=== PATIENT | female | born 1930 | race Two or more races ===

== ENCOUNTER 2018-06-02 10:12 | Inpatient (IN) | payer MEDICARE, BC ==
[~2018-06-02] VITALS: Ht 157.5 cm; Wt 47.6 kg
[2018-06-02 11:24] LABS: HEMATOCRIT 37.6 % (37.0-47.0); HEMOGLOBIN 12.6 G/DL (12.0-16.0); MEAN CORPUSCULAR VOLUME 90 FL (80-99); PLATELET COUNT 420 K/UL (150-450); RED BLOOD COUNT 4.17 M/UL (4.20-5.40); WHITE BLOOD COUNT 9.7 K/UL (4.8-10.8)
[2018-06-02 11:28] LABS: APPEARANCE,URINE SLIGHTLY CLOUDY; BILIRUBIN, URINE NEGATIVE (NEGATIVE); COLOR,URINE PALE YELLOW; GLUCOSE, URINE (UA) NEGATIVE (NEGATIVE); KETONES,URINE NEGATIVE (NEGATIVE); LEUKOCYTE ESTERASE ,URINE 2+ (NEGATIVE); NITRITE,URINE NEGATIVE (NEGATIVE); PH,URINE 6 (4.5-8.0); PROTEIN,URINE NEGATIVE (NEGATIVE); UROBILINOGEN,URINE NORMAL MG/DL (0.0-1.0)
[2018-06-02 11:38] LABS: ANION GAP 11 mmol/L (5-15); BLOOD UREA NITROGEN 7 mg/dL (7-18); CALCIUM 9.8 MG/DL (8.5-10.1); CARBON DIOXIDE 27 MMOL/L (21-32); CHLORIDE 103 MMOL/L (98-107); CREATININE 0.7 MG/DL (0.55-1.30); POTASSIUM 3.1 MMOL/L (3.5-5.1); SODIUM 141 MMOL/L (136-145)
[2018-06-02 11:48] VITALS: BP 139/73
[2018-06-02 11:52] LABS: ALANINE AMINOTRANSFERASE 20 U/L (12-78); ALBUMIN 3.1 G/DL (3.4-5.0); ALBUMIN/GLOBULIN RATIO 0.5 (1.0-2.7); ALKALINE PHOSPHATASE 91 U/L (46-116); ASPARTATE AMINO TRANSFERASE 12 U/L (15-37); BILIRUBIN,TOTAL 0.4 MG/DL (0.2-1.0); CREATINE KINASE 64 U/L (26-308)
--- NOTE | 2018-06-02 11:57 | Diagnostic Imaging Report ---
Indication: Altered mental status Technique: spiral acquisitions obtained through the brain. Angled axial and coronal 5 x 5 mm slices were reconstructed. No IV contrast utilized. Radiation dose was minimized using automated exposure control Total dose length product 1304.74 mGycm. CTDIvol(s) 70.38 mGy Comparison: none FINDINGS: No acute hemorrhage or edema. No mass effect or midline shift. There is age-related enlargement of the ventricles and extra axial CSF spaces. There is periventricular deep white matter ischemic change. Normal yañez-white differentiation. Visualized orbits are unremarkable. Visualized sinuses are unremarkable. Intact calvarium. IMPRESSION: Chronic and age-related changes. Negative for acute intracranial bleed or mass effect The CT scanner at [facility] is accredited by the [employer] and the scans are performed using protocols designed to limit radiation exposure to as low as reasonably achievable to attain images of sufficient resolution adequate for diagnostic evaluation
--- NOTE | 2018-06-02 12:11 | Diagnostic Imaging Report ---
Indication: Shortness of breath Technique: One view of the chest Comparison: none Findings: Lungs and pleural spaces are clear. The aorta is tortuous and calcified. Normal heart size. There are left axillary surgical clips. Impression: No acute process. Findings as noted
--- NOTE | 2018-06-02 12:39 | Emergency Room Report ---
History of Present Illness General Chief Complaint: General Complaint Source: Family Member, EMS Present Illness HPI Patient present by paramedics for reports of continued weakness Over the past 2 days now the patient has been weaker than usual Family is unable to stand her to go to the restroom Patient has been behaving unusual as well talking to herself Family feels the patient has not been eating well Unknown regarding fever patient's speech also appears to be affected over the past 3 days No obvious reports of a fall family cannot provide any specific focal weakness History of present illness is limited given the patient's mental status Allergies: Coded Allergies: PENICILLINS (Verified Allergy, Unknown, 06/02/18) Patient History Limited by: medical condition Past Medical History: see triage record Pertinent Family History: none Last Menstrual Period: N/A Reviewed Nursing Documentation: PMH: Agreed; PSxH: Agreed Nursing Documentation-PMH Past Medical History: No History, Except For Hx Cardiac Problems: No - KIDNEY INFECTIONS Hx Cancer: Yes - BREAT, 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 History Of Psychiatric Problem: Yes - ALZHEIMERS, DEMENTIA Review of Systems All Other Systems: limited - Other than the ones mentioned in the history of present illness all others are reviewed however they do stay limited due to the patient's mental status Physical Exam Vital Signs Date Time Temp Pulse Resp B/P (MAP) Pulse Ox O2 Delivery O2 Flow Rate FiO2 06/02/18 10:15 99.2 88 16 160/92 99 Room Air 99.1 Sp02 EP Interpretation: reviewed, normal General Appearance: no apparent distress - However decreased response Head: normocephalic, atraumatic Eyes: bilateral eye PERRL, bilateral eye EOMI ENT: TMs + canals normal, uvula midline, dry mucus membranes Neck: supple, no meningismus, no bony tend Respiratory: no respiratory distress, no retraction, no accessory muscle use, crackles - Both lower lobes Cardiovascular #1: normal peripheral pulses, regular rate, rhythm, no edema, no gallop, no JVD, no murmur Gastrointestinal: normal bowel sounds, non tender, soft, no mass, no organomegaly, non-distended, no guarding, no hernia, no pulsatile mass, no rebound Genitourinary: no CVA tenderness Musculoskeletal: other - Patient does not follow commands has left upper extremity flexed, Neurologic: responsive - Minimally to physical stimuli Psychiatric: mood/affect normal Skin: no rash, warm/dry, palpation normal Lymphatic: normal inspection, no adenopathy Medical Decision Making Diagnostic Impression: Primary Impression: UTI (urinary tract infection) Additional Impression: Sepsis ER Course Patient is a fairly complex patient with multiple differential to consideration including but not limited to cardiac cardiopulmonary and vascular emergencies Patient's workup reveals bacteria in the urine Potassium was mildly low Given the patient's comorbidities age and examination she will require further inpatient care and evaluation Labs Test 06/04/18 22:56 06/05/18 07:10 06/06/18 04:03 06/06/18 11:00 Activated Partial Thromboplast Time 142 SEC (23-33) 92 SEC (23-33) 55 SEC (23-33) 126 SEC (23-33) Ferritin 116 NG/ML (8-388) White Blood Count 8.5 K/UL (4.8-10.8) 11.1 K/UL (4.8-10.8) Red Blood Count 3.49 M/UL (4.20-5.40) 3.58 M/UL (4.20-5.40) Hemoglobin 11.1 G/DL (12.0-16.0) 10.9 G/DL (12.0-16.0) Hematocrit 31.9 % (37.0-47.0) 32.4 % (37.0-47.0) Mean Corpuscular Volume 91 FL (80-99) 91 FL (80-99) Mean Corpuscular Hemoglobin 31.8 PG (27.0-31.0) 30.5 PG (27.0-31.0) Mean Corpuscular Hemoglobin Concent 34.8 G/DL (32.0-36.0) 33.7 G/DL (32.0-36.0) Red Cell Distribution Width 12.6 % (11.6-14.8) 12.4 % (11.6-14.8) Platelet Count 329 K/UL (150-450) 340 K/UL (150-450) Mean Platelet Volume 5.8 FL (6.5-10.1) 5.9 FL (6.5-10.1) Neutrophils (%) (Auto) 83.3 % (45.0-75.0) 74.5 % (45.0-75.0) Lymphocytes (%) (Auto) 10.5 % (20.0-45.0) 15.8 % (20.0-45.0) Monocytes (%) (Auto) 4.4 % (1.0-10.0) 8.3 % (1.0-10.0) Eosinophils (%) (Auto) 1.3 % (0.0-3.0) 0.7 % (0.0-3.0) Basophils (%) (Auto) 0.4 % (0.0-2.0) 0.7 % (0.0-2.0) Sodium Level 141 MMOL/L (136-145) Potassium Level 4.3 MMOL/L (3.5-5.1) Chloride Level 104 MMOL/L (98-107) Carbon Dioxide Level 28 MMOL/L (21-32) Anion Gap 9 mmol/L (5-15) Blood Urea Nitrogen 9 mg/dL (7-18) Creatinine 0.8 MG/DL (0.55-1.30) Estimat Glomerular Filtration Rate mL/min (>60) Glucose Level 91 MG/DL (74-106) Uric Acid 2.3 MG/DL (2.6-7.2) Calcium Level 9.3 MG/DL (8.5-10.1) Phosphorus Level 3.3 MG/DL (2.5-4.9) Magnesium Level 2.0 MG/DL (1.8-2.4) Total Bilirubin 0.3 MG/DL (0.2-1.0) Aspartate Amino Transf (AST/SGOT) 35 U/L (15-37) Alanine Aminotransferase (ALT/SGPT) 40 U/L (12-78) Alkaline Phosphatase 88 U/L (46-116) Total Protein 8.1 G/DL (6.4-8.2) Albumin 2.5 G/DL (3.4-5.0) Globulin 5.6 g/dL Albumin/Globulin Ratio 0.4 (1.0-2.7) Test 06/06/18 22:15 06/07/18 05:20 06/07/18 13:48 White Blood Count 11.9 K/UL (4.8-10.8) Red Blood Count 2.98 M/UL (4.20-5.40) Hemoglobin 9.7 G/DL (12.0-16.0) Hematocrit 26.8 % (37.0-47.0) Mean Corpuscular Volume 90 FL (80-99) Mean Corpuscular Hemoglobin 32.6 PG (27.0-31.0) Mean Corpuscular Hemoglobin Concent 36.3 G/DL (32.0-36.0) Red Cell Distribution Width 12.2 % (11.6-14.8) Platelet Count 330 K/UL (150-450) Mean Platelet Volume 5.2 FL (6.5-10.1) Neutrophils (%) (Auto) 84.2 % (45.0-75.0) Lymphocytes (%) (Auto) 9.5 % (20.0-45.0) Monocytes (%) (Auto) 5.3 % (1.0-10.0) Eosinophils (%) (Auto) 0.6 % (0.0-3.0) Basophils (%) (Auto) 0.5 % (0.0-2.0) Activated Partial Thromboplast Time 62 SEC (23-33) > 150 SEC (23-33) 50 SEC (23-33) Rhythm Strip Diag. Results EP Interpretation: yes Rate: 77 Rhythm: NSR, no PVC's, no ectopy Chest X-Ray Diagnostic Results Chest X-Ray Diagnostic Results : Chest X-Ray Ordered: Yes # of Views/Limited/Complete: 1 View Indication: Chest Pain EP Interpretation: Yes Interpretation: no consolidation, no effusion, no pneumothorax Impression: No acute disease Electronically Signed by: Charles Bowen DO CT/MRI/US Diagnostic Results CT/MRI/US Diagnostic Results : Impression CT head no acute disease Last Vital Signs Date Time Temp Pulse Resp B/P (MAP) Pulse Ox O2 Delivery O2 Flow Rate FiO2 06/02/18 11:48 99.1 83 16 139/73 94 Room Air 99.1 Status: improved Disposition: ADMITTED INPATIENT Condition: Serious Referrals: NON PHYSICIAN (PCP) Charles Bowen DO Jun 02, 2018 12:39
[2018-06-02] MEDS ORDERED: cefTRIAXone 1 GM in NS 55 ML IVPB ONE (12:45)
[2018-06-02 14:15] VITALS: BP 111/63
[2018-06-02] MEDS ORDERED: MIRTAZAPINE15 M3 ORAL (14:41)
[2018-06-02] MEDS ORDERED: MEMANTINE HCL E21 MG PO (14:41)
[2018-06-02] MEDS ORDERED: QUETIAPINE FUMA25 MG ORAL (14:41)
[2018-06-02 15:05] VITALS: BP 122/69
[2018-06-02] MEDS ORDERED: Acetaminophen 500mg (ES) tab ORAL PRN (16:00)
[2018-06-02] MEDS ORDERED: 1/2NS w/KCl 20mEq 1000ml 1,000 ML IV SCH (17:00)
--- NOTE | 2018-06-02 17:21 | Consultation ---
Consult Note Consult Note asked to eval by Dr Nunez Patient present by paramedics for reports of continued weakness Over the past 2 days now the patient has been weaker than usual Family is unable to stand her to go to the restroom Patient has been behaving unusual as well talking to herself Family feels the patient has not been eating well Unknown regarding fever patient's speech also appears to be affected over the past 3 days No obvious reports of a fall family cannot provide any specific focal weakness History of present illness is limited given the patient's mental status PENICILLINS (Verified Allergy, Unknown, 06/02/18) Hx Cancer: Yes - BREAT, 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
[2018-06-02] MEDS ORDERED: HydrALAZINE 25mg tab ORAL PRN (17:30)
[2018-06-02 20:00] VITALS: BP 120/65
[2018-06-02] MEDS: D5 1/2NS w/KCl 20mEq 1,000 ML IV SCH (20:17)
--- NOTE | 2018-06-02 23:24 | Consultation ---
History of Present Illness General Date patient seen: Jun 02, 2018 Chief Complaint: General Complaint Present Illness HPI 88 yo female with mmp and dementia was admitted for ams and weakness. Patient present by paramedics for reports of continued weakness. the pt was uncooperative and was a poor historian due to cognitive impairment Allergies: Coded Allergies: PENICILLINS (Verified Allergy, Unknown, 06/02/18) Medication History Scheduled Memantine HCl (Memantine HCl ER), 21 MG PO DAILY, (Reported) Mirtazapine* (Mirtazapine*), 15 MG ORAL BEDTIME, (Reported) Quetiapine Fumarate* (Seroquel*), 25 MG ORAL DAILY, (Reported) Patient History Limited by: medical condition History Provided By: Medical Record, PMD Healthcare decision maker Radha Bella Resuscitation status Full Code Advanced Directive on File Past Medical/Surgical History Past Medical/Surgical History: (1) Encephalopathy (2) UTI (urinary tract infection) (3) Hypokalemia (4) Breast cancer in female (5) Dementia (6) Malnutrition Review of Systems Psychiatric: Reports: anxiety, depressed feelings, emotional problems Physical Exam General Appearance: no apparent distress, alert, confused, agitated Last 24 Hour Vital Signs Date Time Temp Pulse Resp B/P (MAP) Pulse Ox O2 Delivery O2 Flow Rate FiO2 06/02/18 20:00 98.8 64 20 120/65 (83) 98 98.8 06/02/18 16:00 81 06/02/18 15:07 Room Air 06/02/18 15:05 98.1 18 122/69 (86) 99 98.1 06/02/18 14:35 99.1 77 17 111/63 93 Room Air 99.1 06/02/18 14:15 99.1 77 17 111/63 93 Room Air 99.1 06/02/18 11:48 99.1 83 16 139/73 94 Room Air 99.1 06/02/18 10:15 99.2 88 16 160/92 99 Room Air 99.1 Laboratory Tests Test 06/02/18 11:07 White Blood Count 9.7 K/UL (4.8-10.8) Red Blood Count 4.17 M/UL (4.20-5.40) L Hemoglobin 12.6 G/DL (12.0-16.0) Hematocrit 37.6 % (37.0-47.0) Mean Corpuscular Volume 90 FL (80-99) Mean Corpuscular Hemoglobin 30.1 PG (27.0-31.0) Mean Corpuscular Hemoglobin Concent 33.4 G/DL (32.0-36.0) Red Cell Distribution Width 12.0 % (11.6-14.8) Platelet Count 420 K/UL (150-450) Mean Platelet Volume 5.7 FL (6.5-10.1) L Neutrophils (%) (Auto) % (45.0-75.0) Lymphocytes (%) (Auto) % (20.0-45.0) Monocytes (%) (Auto) % (1.0-10.0) Eosinophils (%) (Auto) % (0.0-3.0) Basophils (%) (Auto) % (0.0-2.0) Differential Total Cells Counted 100 Neutrophils % (Manual) 87 % (45-75) H Lymphocytes % (Manual) 7 % (20-45) L Monocytes % (Manual) 6 % (1-10) Eosinophils % (Manual) 0 % (0-3) Basophils % (Manual) 0 % (0-2) Band Neutrophils 0 % (0-8) Platelet Estimate Increased H Platelet Morphology Normal Hypochromasia 1+ Prothrombin Time 10.2 SEC (9.30-11.50) Prothromb Time International Ratio 1.0 (0.9-1.1) Activated Partial Thromboplast Time 23 SEC (23-33) Urine Color Pale yellow Urine Appearance Slightly cloudy Urine pH 6 (4.5-8.0) Urine Specific [place] 1.005 (1.005-1.035) Urine Protein Negative (NEGATIVE) Urine Glucose (UA) Negative (NEGATIVE) Urine Ketones Negative (NEGATIVE) Urine Blood Negative (NEGATIVE) Urine Nitrite Negative (NEGATIVE) Urine Bilirubin Negative (NEGATIVE) Urine Urobilinogen Normal MG/DL (0.0-1.0) Urine Leukocyte Esterase 2+ (NEGATIVE) H Urine RBC 0-2 /HPF (0 - 2) Urine WBC 5-10 /HPF (0 - 2) H Urine Squamous Epithelial Cells Occasional /LPF Urine Bacteria Many /HPF (NONE) H Sodium Level 141 MMOL/L (136-145) Potassium Level 3.1 MMOL/L (3.5-5.1) L Chloride Level 103 MMOL/L (98-107) Carbon Dioxide Level 27 MMOL/L (21-32) Anion Gap 11 mmol/L (5-15) Blood Urea Nitrogen 7 mg/dL (7-18) Creatinine 0.7 MG/DL (0.55-1.30) Estimat Glomerular Filtration Rate mL/min (>60) Glucose Level 106 MG/DL (74-106) Lactic Acid Level 1.20 mmol/L (0.4-2.0) Calcium Level 9.8 MG/DL (8.5-10.1) Total Bilirubin 0.4 MG/DL (0.2-1.0) Aspartate Amino Transf (AST/SGOT) 12 U/L (15-37) L Alanine Aminotransferase (ALT/SGPT) 20 U/L (12-78) Alkaline Phosphatase 91 U/L (46-116) Total Creatine Kinase 64 U/L (26-308) Creatine Kinase MB 1.0 NG/ML (0.0-3.6) Creatine Kinase MB Relative Index 1.5 Troponin I 0.000 ng/mL (0.000-0.056) C-Reactive Protein, Quantitative 1.6 mg/dL (0.00-0.90) H Pro-B-Type Natriuretic Peptide 292 pg/mL (0-125) H Total Protein 9.2 G/DL (6.4-8.2) H Albumin 3.1 G/DL (3.4-5.0) L Globulin 6.1 g/dL Albumin/Globulin Ratio 0.5 (1.0-2.7) L Lipase 187 U/L (73-393) Height (Feet): 5 Height (Inches): 2.00 Weight (Pounds): 105 Medications Current Medications Medications (Trade) Dose Ordered Sig/Oren Route PRN Reason Start Time Stop Time Status Last Admin Dose Admin Acetaminophen (Tylenol) 500 mg Q4H PRN ORAL Mild Pain/Temp > 100.5 06/02/18 16:00 07/02/18 15:59 Ceftriaxone Sodium 1 gm/ Dextrose 55 ml @ 110 mls/hr DAILY IVPB 06/03/18 09:00 06/10/18 08:59 Dextrose/ Electrolytes 1,000 ml @ 50 mls/hr Q20H IV 06/02/18 17:30 07/02/18 17:29 06/02/18 20:17 Famotidine (Pepcid I.v.) 10 mg Q12HR IVP 06/02/18 21:00 07/02/18 20:59 06/02/18 20:32 Hydralazine HCl (Apresoline) 25 mg Q6H PRN ORAL for bp over 160 syst 06/02/18 17:30 07/02/18 17:29 Memantine (Namenda) 20 mg DAILY ORAL 06/03/18 09:00 07/03/18 08:59 Mirtazapine (Remeron) 15 mg BEDTIME ORAL 06/02/18 21:00 07/02/18 20:59 Quetiapine Fumarate (SEROquel) 25 mg DAILY ORAL 06/03/18 09:00 07/03/18 08:59 Assessment/Plan Assessment/Plan encephalopathy due to [facility] -cont home meds -provided charissa/Wolfgang Titus MD Jun 02, 2018 23:24
[2018-06-03] VITALS: BP 132/81
--- NOTE | 2018-06-03 02:45 | History and Physical Report ---
DATE OF ADMISSION: 06/02/2018 "NOTE: POOR AUDIO QUALITY" HISTORY OF PRESENT ILLNESS: The patient is admitted for basically unresponsiveness this morning. Family member called the paramedics. The patient has history of Alzheimer's, very poor historian, nonverbal, and cannot get any history from the patient. The patient also has history of DVT and breast cancer, is admitted for . The patient also has hypertension and also has been admitted for UTI as well as low potassium. PAST MEDICAL HISTORY: Significant for Alzheimer's, , and possible psychosis. History of DVT, history of breast cancer, and history of polyps. PAST SURGICAL HISTORY: Polypectomy, status post ruptured status post repair, status post right mastectomy with reconstructive surgery, and also hysterectomy. History of as well. MEDICATIONS: Namenda, mirtazapine, and Seroquel. ALLERGIES: To penicillin. FAMILY HISTORY: Noncontributory. SOCIAL HISTORY: History of smoking. No history of alcohol or illicit drugs. Lives at home with family. REVIEW OF SYSTEMS: Unable to obtain. PHYSICAL EXAMINATION: VITAL SIGNS: Temperature 99.9 degrees, pulse is 83, and blood pressure 129/73. HEENT: PERRLA. NECK: Supple. No lymphadenopathy. CHEST: Clear to auscultation. GASTROINTESTINAL: Soft, nontender, and nondistended. No organomegaly. EXTREMITIES: No edema. Reflexes in both sides. ABDOMEN: Soft and nontender. NEUROLOGIC: Does not follow neurologic exam. nonverbal. Generalized weakness. LABORATORY AND DIAGNOSTIC DATA: WBC of 9.7, hemoglobin 12.6, and platelets of 420,000. Sodium 141, potassium 3.1, chloride of 103, BUN of 7, creatinine of 0.7, and glucose of 106. ASSESSMENT AND PLAN: 1. Hypertension. 2. Low potassium. 3. UTI. 4. Weakness. 5. Encephalopathy, could be due to UTI. 6. Altered mental status, could be due to UTI. I have asked Dr. Virgen, Dr. Jeronimo Berry, and Dr. Wolfgang Rodrigez to see the patient for the treatment of dementia as well as the low potassium, hypertension, and UTI as well as psychosis. Charles Irizarry M.D. DR: BLAIR JOB#: [id number] CC:
[2018-06-03 04:00] VITALS: BP 125/72
[2018-06-03 06:24] LABS: BASOPHILS % (AUTO) 0.5 % (0.0-2.0); EOSINOPHILS % (AUTO) 0.6 % (0.0-3.0); LYMPHOCYTES % (AUTO) 14.2 % (20.0-45.0); MEAN CORPUSCULAR VOLUME 91 FL (80-99); MONOCYTES % (AUTO) 8.4 % (1.0-10.0); NEUTROPHILS % (AUTO) 76.3 % (45.0-75.0); PLATELET COUNT 315 K/UL (150-450); RED BLOOD COUNT 3.62 M/UL (4.20-5.40); RED CELL DISTRIBUTION WIDTH 12.3 % (11.6-14.8); WHITE BLOOD COUNT 8.6 K/UL (4.8-10.8)
[2018-06-03 07:47] LABS: ALANINE AMINOTRANSFERASE 17 U/L (12-78); ALBUMIN 2.5 G/DL (3.4-5.0); ALBUMIN/GLOBULIN RATIO 0.5 (1.0-2.7); ALKALINE PHOSPHATASE 78 U/L (46-116); ANION GAP 10 mmol/L (5-15); ASPARTATE AMINO TRANSFERASE 22 U/L (15-37); BILIRUBIN,TOTAL 0.5 MG/DL (0.2-1.0); BLOOD UREA NITROGEN 6 mg/dL (7-18); CALCIUM 9.2 MG/DL (8.5-10.1); CARBON DIOXIDE 25 MMOL/L (21-32); CHLORIDE 108 MMOL/L (98-107); CHOLESTEROL 196 MG/DL (< 200); CREATININE 0.8 MG/DL (0.55-1.30); FERRITIN 107 NG/ML (8-388); GAMMA GLUTAMYL TRANSPEPTIDASE 25 U/L (5-85); HDL CHOLESTEROL 45 MG/DL (40-60); PHOSPHORUS 2.6 MG/DL (2.5-4.9); POTASSIUM 3.2 MMOL/L (3.5-5.1); SODIUM 143 MMOL/L (136-145); TRIGLYCERIDES 142 MG/DL (30-150)
[2018-06-03 08:29] LABS: % IRON SATURATION 14 % (15-50); IRON 28 ug/dL (50-175); TOTAL IRON BINDING CAPACITY 200 ug/dL (250-450)
[2018-06-03] MEDS ORDERED: Memantine 10mg tab ORAL SCH (09:00)
[2018-06-03] MEDS: cefTRIAXone 1 GM in D5W 55 ML IVPB SCH (09:44)
--- NOTE | 2018-06-03 10:15 | Nephrology Progress Note ---
Assessment/Plan Problem List: (1) Encephalopathy (2) UTI (urinary tract infection) (3) Hypokalemia (4) Breast cancer in female Assessment: remote history (5) Dementia (6) Malnutrition Assessment UTI- HypoKalemia Dementia Remote h/o Breast Ca- Right Mastectomy- s/p chemo and radiation [facility] with K supplement B12 and Iron one dose per orders Subjective ROS Limited/Unobtainable: No Constitutional: Reports: malaise, weakness Objective Objective Last 24 Hour Vital Signs Date Time Temp Pulse Resp B/P (MAP) Pulse Ox O2 Delivery O2 Flow Rate FiO2 06/03/18 04:00 76 06/03/18 04:00 97.4 83 20 125/72 (89) 98 97.4 06/03/18 00:00 97.3 72 19 132/81 (98) 97 97.3 06/03/18 00:00 76 06/02/18 21:00 Room Air 06/02/18 20:00 98.8 64 20 120/65 (83) 98 98.8 06/02/18 20:00 75 06/02/18 16:00 81 06/02/18 15:07 Room Air 06/02/18 15:05 98.1 18 122/69 (86) 99 98.1 06/02/18 14:35 99.1 77 17 111/63 93 Room Air 99.1 06/02/18 14:15 99.1 77 17 111/63 93 Room Air 99.1 06/02/18 11:48 99.1 83 16 139/73 94 Room Air 99.1 06/02/18 10:15 99.2 88 16 160/92 99 Room Air 99.1 Intake and Output 06/02/18 06/03/18 19:00 07:00 Intake Total 55 ml Balance 55 ml Intake IV Total 55 ml # Voids 2 1 Laboratory Tests 06/02/18 11:07: White Blood Count 9.7, Red Blood Count 4.17L, Hemoglobin 12.6, Hematocrit 37.6, Mean Corpuscular Volume 90, Mean Corpuscular Hemoglobin 30.1, Mean Corpuscular Hemoglobin Concent 33.4, Red Cell Distribution Width 12.0, Platelet Count 420, Mean Platelet Volume 5.7L, Neutrophils (%) (Auto) , Lymphocytes (%) (Auto) , Monocytes (%) (Auto) , Eosinophils (%) (Auto) , Basophils (%) (Auto) , Differential Total Cells Counted 100, Neutrophils % (Manual) 87H, Lymphocytes % (Manual) 7L, Monocytes % (Manual) 6, Eosinophils % (Manual) 0, Basophils % ( Manual) 0, Band Neutrophils 0, Platelet Estimate IncreasedH, Platelet Morphology Normal, Hypochromasia 1+, Prothrombin Time 10.2, Prothromb Time International Ratio 1.0, Activated Partial Thromboplast Time 23, Urine Color Pale yellow, Urine Appearance Slightly cloudy, Urine pH 6, Urine Specific [place] 1.005, Urine Protein Negative, Urine Glucose (UA) Negative, Urine Ketones Negative, Urine Blood Negative, Urine Nitrite Negative, Urine Bilirubin Negative, Urine Urobilinogen Normal, Urine Leukocyte Esterase 2+H, Urine RBC 0-2 , Urine WBC 5-10H, Urine Squamous Epithelial Cells Occasional, Urine Bacteria ManyH, Sodium Level 141, Potassium Level 3.1L, Chloride Level 103, Carbon Dioxide Level 27, Anion Gap 11, Blood Urea Nitrogen 7, Creatinine 0.7, Estimat Glomerular Filtration Rate , Glucose Level 106, Lactic Acid Level 1.20, Calcium Level 9.8, Total Bilirubin 0.4, Aspartate Amino Transf (AST/SGOT) 12L, Alanine Aminotransferase (ALT/SGPT) 20, Alkaline Phosphatase 91, Total Creatine Kinase 64, Creatine Kinase MB 1.0, Creatine Kinase MB Relative Index 1.5, Troponin I 0.000, C-Reactive Protein, Quantitative 1.6H, Pro-B-Type Natriuretic Peptide 292H, Total Protein 9.2H, Albumin 3.1L, Globulin 6.1, Albumin/Globulin Ratio 0.5L, Lipase 187 06/03/18 04:55: White Blood Count 8.6, Red Blood Count 3.62L, Hemoglobin 11.0L, Hematocrit 33.0L , Mean Corpuscular Volume 91, Mean Corpuscular Hemoglobin 30.5, Mean Corpuscular Hemoglobin Concent 33.5, Red Cell Distribution Width 12.3, Platelet Count 315, Mean Platelet Volume 6.1L, Neutrophils (%) (Auto) 76.3H, Lymphocytes (%) (Auto) 14.2L, Monocytes (%) (Auto) 8.4, Eosinophils (%) (Auto) 0.6, Basophils (%) (Auto) 0.5, Sodium Level 143, Potassium Level 3.2L, Chloride Level 108H, Carbon Dioxide Level 25, Anion Gap 10, Blood Urea Nitrogen 6L, Creatinine 0.8, Estimat Glomerular Filtration Rate , Glucose Level 99, Calcium Level 9.2, Total Bilirubin 0.5, Aspartate Amino Transf (AST/SGOT) 22, Alanine Aminotransferase (ALT/SGPT) 17, Alkaline Phosphatase 78, Pro-B-Type Natriuretic Peptide 257H, Total Protein 7.9, Albumin 2.5L, Globulin 5.4, Albumin/Globulin Ratio 0.5L, Hemoglobin A1c 5.4, Uric Acid 2.9, Phosphorus Level 2.6, Magnesium Level 2.1, Iron Level 28L, Total Iron Binding Capacity 200L, Percent Iron Saturation 14L, Unsaturated Iron Binding 172, Ferritin 107, Gamma Glutamyl Transpeptidase 25, Triglycerides Level 142, Cholesterol Level 196, LDL Cholesterol 128H, HDL Cholesterol 45, Cholesterol/HDL Ratio 4.4, Vitamin B12 Level 380, Folate 8.8, Thyroid Stimulating Hormone (TSH) 1.016 Height (Feet): 5 Height (Inches): 2.00 Weight (Pounds): 105 General Appearance: no apparent distress Cardiovascular: regular rhythm Respiratory/Chest: lungs clear Abdomen: soft Ortega Virgen MD Jun 03, 2018 10:15
[2018-06-03 11:26] LABS: BASOPHILS % (AUTO) 0.7 % (0.0-2.0); EOSINOPHILS % (AUTO) 0.5 % (0.0-3.0); HEMATOCRIT 33.6 % (37.0-47.0); HEMOGLOBIN 11.2 G/DL (12.0-16.0); LYMPHOCYTES % (AUTO) 17.9 % (20.0-45.0); MEAN CORPUSCULAR VOLUME 91 FL (80-99); MONOCYTES % (AUTO) 7.2 % (1.0-10.0); NEUTROPHILS % (AUTO) 73.7 % (45.0-75.0); PLATELET COUNT 277 K/UL (150-450); RED BLOOD COUNT 3.69 M/UL (4.20-5.40); RED CELL DISTRIBUTION WIDTH 12.3 % (11.6-14.8); WHITE BLOOD COUNT 9.6 K/UL (4.8-10.8)
--- NOTE | 2018-06-03 12:23 | General Progress Note ---
Assessment/Plan Assessment/Plan encephalopathy due to [facility] -cont home meds -provided ro/st Subjective Date patient seen: Jun 03, 2018 Neurologic/Psychiatric: Reports: anxiety, depressed Allergies: Coded Allergies: PENICILLINS (Verified Allergy, Unknown, 06/02/18) Subjective the pt was min verbal. the pt was uncooperative Objective Last 24 Hour Vital Signs Date Time Temp Pulse Resp B/P (MAP) Pulse Ox O2 Delivery O2 Flow Rate FiO2 06/03/18 09:00 Room Air 06/03/18 07:43 77 06/03/18 04:00 76 06/03/18 04:00 97.4 83 20 125/72 (89) 98 97.4 06/03/18 00:00 97.3 72 19 132/81 (98) 97 97.3 06/03/18 00:00 76 06/02/18 21:00 Room Air 06/02/18 20:00 98.8 64 20 120/65 (83) 98 98.8 06/02/18 20:00 75 06/02/18 16:00 81 06/02/18 15:07 Room Air 06/02/18 15:05 98.1 18 122/69 (86) 99 98.1 06/02/18 14:35 99.1 77 17 111/63 93 Room Air 99.1 06/02/18 14:15 99.1 77 17 111/63 93 Room Air 99.1 Intake and Output 06/02/18 06/03/18 19:00 07:00 Intake Total 55 ml Balance 55 ml Intake IV Total 55 ml # Voids 2 1 Laboratory Tests 06/03/18 04:55: White Blood Count 8.6, Red Blood Count 3.62L, Hemoglobin 11.0L, Hematocrit 33.0L , Mean Corpuscular Volume 91, Mean Corpuscular Hemoglobin 30.5, Mean Corpuscular Hemoglobin Concent 33.5, Red Cell Distribution Width 12.3, Platelet Count 315, Mean Platelet Volume 6.1L, Neutrophils (%) (Auto) 76.3H, Lymphocytes (%) (Auto) 14.2L, Monocytes (%) (Auto) 8.4, Eosinophils (%) (Auto) 0.6, Basophils (%) (Auto) 0.5, Sodium Level 143, Potassium Level 3.2L, Chloride Level 108H, Carbon Dioxide Level 25, Anion Gap 10, Blood Urea Nitrogen 6L, Creatinine 0.8, Estimat Glomerular Filtration Rate , Glucose Level 99, Hemoglobin A1c 5.4, Uric Acid 2.9, Calcium Level 9.2, Phosphorus Level 2.6, Magnesium Level 2.1, Iron Level 28L, Total Iron Binding Capacity 200L, Percent Iron Saturation 14L, Unsaturated Iron Binding 172, Ferritin 107, Total Bilirubin 0.5, Gamma Glutamyl Transpeptidase 25, Aspartate Amino Transf (AST/ SGOT) 22, Alanine Aminotransferase (ALT/SGPT) 17, Alkaline Phosphatase 78, Pro-B -Type Natriuretic Peptide 257H, Total Protein 7.9, Albumin 2.5L, Globulin 5.4, Albumin/Globulin Ratio 0.5L, Triglycerides Level 142, Cholesterol Level 196, LDL Cholesterol 128H, HDL Cholesterol 45, Cholesterol/HDL Ratio 4.4, Vitamin B12 Level 380, Folate 8.8, Thyroid Stimulating Hormone (TSH) 1.016 06/03/18 11:00: White Blood Count 9.6, Red Blood Count 3.69L, Hemoglobin 11.2L, Hematocrit 33.6L , Mean Corpuscular Volume 91, Mean Corpuscular Hemoglobin 30.4, Mean Corpuscular Hemoglobin Concent 33.3, Red Cell Distribution Width 12.3, Platelet Count 277, Mean Platelet Volume 6.4L, Neutrophils (%) (Auto) 73.7, Lymphocytes ( %) (Auto) 17.9L, Monocytes (%) (Auto) 7.2, Eosinophils (%) (Auto) 0.5, Basophils (%) (Auto) 0.7, Activated Partial Thromboplast Time 26 Height (Feet): 5 Height (Inches): 2.00 Weight (Pounds): 105 General Appearance: no apparent distress, alert, confused Wolfgang Rodrigez MD Jun 03, 2018 12:23
[2018-06-03] MEDS ORDERED: Heparin 25,000u/D5W 500ml 500 ML IV SCH ×2 (12:30→20:45)
[2018-06-03] MEDS ORDERED: Heparin 5000 units/ml inj IV SCH ×3 (12:30→20:45)
[2018-06-03] MEDS ORDERED: Vitamin B12 1000mcg/ml Inj IM SCH (13:00)
[2018-06-03] MEDS: D5 1/2NS w/KCl 20mEq 1,000 ML IV SCH (14:14)
--- NOTE | 2018-06-03 15:53 | Cardiology Report ---
APPROVED REPORT EKG Measurement Heart [id number] Normal sinus rhythm Nonspecific ST abnormality Abnormal ECG
[2018-06-03 16:00] VITALS: BP 99/74
[2018-06-03 20:00] VITALS: BP 129/82
--- NOTE | 2018-06-03 20:52 | Consultation ---
Consult Note Consult Note PULMONARY CONSULTATION DATE: 06/03/18 REFERRING PHYSICIAN: Charles Nunez MD REASON FOR CONSULTATION: DVT HPI: 88 F ho advanced AD, BR CA S/P surg/chemo/XRT p/w AMS and UTI noted to have an acute non-occlusive RLE DVT. She has a prior ho DVT not on A/C. AFVSS, stable on RA, no further hx obtainable. PMH: Br CA S/P surgery/chemo/XRT, DVT, Alzheimer;s dementia Active Scripts Medications Dose Route/Sig Max Daily Dose Days Date Category Memantine HCl ER (Memantine HCl) 21 Mg Cap.spr.24 21 Mg PO DAILY 06/02/18 Reported Seroquel* (Quetiapine Fumarate) 25 Mg Tablet 25 Mg ORAL DAILY 06/02/18 Reported Mirtazapine* (Mirtazapine) 15 Mg Tablet 15 Mg ORAL BEDTIME 06/02/18 Reported SHx; No T/E/D use FHx: N/C ROS: unobtainable PE: Vital Sign - Last 24 Hours 06/02/18 06/03/18 06/03/18 06/03/18 21:00 00:00 00:00 04:00 Temp 97.3 97.4 97.3 97.4 Pulse 76 72 83 Resp 19 20 B/P (MAP) 132/81 (98) 125/72 (89) Pulse Ox 97 98 O2 Delivery Room Air 06/03/18 06/03/18 06/03/18 06/03/18 04:00 07:43 09:00 11:58 Pulse 76 77 74 O2 Delivery Room Air 06/03/18 06/03/18 15:47 16:00 Temp 97.5 97.5 Pulse 75 80 Resp 21 B/P (MAP) 99/74 (82) Pulse Ox 94 Intake and Output 06/02/18 06/02/18 06/03/18 15:00 23:00 07:00 Intake Total 55 ml Balance 55 ml Demented, minimall verbal NC/AT, OPC c MMM Supple s LAD or JVD CTA RRR S/NT/ND c NABS No C/C/E Laboratory Tests Test 06/03/18 04:55 06/03/18 11:00 06/03/18 19:30 White Blood Count 8.6 K/UL (4.8-10.8) 9.6 K/UL (4.8-10.8) Red Blood Count 3.62 M/UL (4.20-5.40) L 3.69 M/UL (4.20-5.40) L Hemoglobin 11.0 G/DL (12.0-16.0) L 11.2 G/DL (12.0-16.0) L Hematocrit 33.0 % (37.0-47.0) L 33.6 % (37.0-47.0) L Mean Corpuscular Volume 91 FL (80-99) 91 FL (80-99) Mean Corpuscular Hemoglobin 30.5 PG (27.0-31.0) 30.4 PG (27.0-31.0) Mean Corpuscular Hemoglobin Concent 33.5 G/DL (32.0-36.0) 33.3 G/DL (32.0-36.0) Red Cell Distribution Width 12.3 % (11.6-14.8) 12.3 % (11.6-14.8) Platelet Count 315 K/UL (150-450) 277 K/UL (150-450) Mean Platelet Volume 6.1 FL (6.5-10.1) L 6.4 FL (6.5-10.1) L Neutrophils (%) (Auto) 76.3 % (45.0-75.0) H 73.7 % (45.0-75.0) Lymphocytes (%) (Auto) 14.2 % (20.0-45.0) L 17.9 % (20.0-45.0) L Monocytes (%) (Auto) 8.4 % (1.0-10.0) 7.2 % (1.0-10.0) Eosinophils (%) (Auto) 0.6 % (0.0-3.0) 0.5 % (0.0-3.0) Basophils (%) (Auto) 0.5 % (0.0-2.0) 0.7 % (0.0-2.0) Sodium Level 143 MMOL/L (136-145) Potassium Level 3.2 MMOL/L (3.5-5.1) L Chloride Level 108 MMOL/L (98-107) H Carbon Dioxide Level 25 MMOL/L (21-32) Anion Gap 10 mmol/L (5-15) Blood Urea Nitrogen 6 mg/dL (7-18) L Creatinine 0.8 MG/DL (0.55-1.30) Estimat Glomerular Filtration Rate mL/min (>60) Glucose Level 99 MG/DL (74-106) Hemoglobin A1c 5.4 % (4.3-6.0) Uric Acid 2.9 MG/DL (2.6-7.2) Calcium Level 9.2 MG/DL (8.5-10.1) Phosphorus Level 2.6 MG/DL (2.5-4.9) Magnesium Level 2.1 MG/DL (1.8-2.4) Iron Level 28 ug/dL (50-175) L Total Iron Binding Capacity 200 ug/dL (250-450) L Percent Iron Saturation 14 % (15-50) L Unsaturated Iron Binding 172 ug/dL (112-346) Ferritin 107 NG/ML (8-388) Total Bilirubin 0.5 MG/DL (0.2-1.0) Gamma Glutamyl Transpeptidase 25 U/L (5-85) Aspartate Amino Transf (AST/SGOT) 22 U/L (15-37) Alanine Aminotransferase (ALT/SGPT) 17 U/L (12-78) Alkaline Phosphatase 78 U/L (46-116) Pro-B-Type Natriuretic Peptide 257 pg/mL (0-125) H Total Protein 7.9 G/DL (6.4-8.2) Albumin 2.5 G/DL (3.4-5.0) L Globulin 5.4 g/dL Albumin/Globulin Ratio 0.5 (1.0-2.7) L Triglycerides Level 142 MG/DL (30-150) Cholesterol Level 196 MG/DL (< 200) LDL Cholesterol 128 mg/dL (<100) H HDL Cholesterol 45 MG/DL (40-60) Cholesterol/HDL Ratio 4.4 (3.3-4.4) Vitamin B12 Level 380 PG/ML (193-986) Folate 8.8 NG/ML (8.6-58.9) Thyroid Stimulating Hormone (TSH) 1.016 uiU/mL (0.358-3.740) Activated Partial Thromboplast Time 26 SEC (23-33) 25 SEC (23-33) Assessment/Plan Acute RLE non-occlusive DVT H/O prior DVT not on A/C Fall risk Advanced alzheimer dementia AMS, likely toxic metabolic encephalopathy on top of underlying dementia UTI H/O Br CA S/P surgery/chemo/RT PLAN: This patient clearly poses a fall risk which is a concern for group home A/C. She had a prior DVT, it is unclear if that was provoked or not and whether she is off A/C 2/2 fall/bleed risk or that she completed the course of treatment. Nonetheless, I will start her on IV unfractionated heparin while she is in the hospital and we can decide on continued A/C over the course of the next day or two. I will speak with Dr. Nunez and attempt to obtain further records. One option would be to place an IVC filter. We will also get a KUB to make sure she doesn't already have an IVC filter. Alternatively, if she is able to tolerate A/C we can continue low dose A/C (i.e Apixaban 2.5 BID) cautiously with extreme fall precautions. Furthemore, we need to address her goals of care. Given her advanced dementia a more conservative approach may be the most appropriate. Lior Damico MD Jun 03, 2018 20:52
[2018-06-03] MEDS: Iron Sucrose 200 MG in NS 110 ML IV ONE (21:00)
--- NOTE | 2018-06-03 21:14 | General Progress Note ---
Assessment/Plan Problem List: (1) Encephalopathy ICD Codes: G93.40 - Encephalopathy, unspecified SNOMED: 69218748 (2) UTI (urinary tract infection) ICD Codes: N39.0 - Urinary tract infection, site not specified SNOMED: 40352184 (3) Breast cancer in female ICD Codes: C50.919 - Malignant neoplasm of unspecified site of unspecified female breast SNOMED: 686952769 (4) Hypokalemia ICD Codes: E87.6 - Hypokalemia SNOMED: 07721351 (5) Dementia ICD Codes: F03.90 - Unspecified dementia without behavioral disturbance SNOMED: 86850458 Status: stable Status Narrative obs ams uti encehpahlopathy lyte abnormality improving abx per id afebrile Subjective ROS Limited/Unobtainable: Yes Allergies: Coded Allergies: PENICILLINS (Verified Allergy, Unknown, 06/02/18) Objective Last 24 Hour Vital Signs Date Time Temp Pulse Resp B/P (MAP) Pulse Ox O2 Delivery O2 Flow Rate FiO2 06/03/18 16:00 97.5 80 21 99/74 (82) 94 97.5 06/03/18 15:47 75 06/03/18 11:58 74 06/03/18 09:00 Room Air 06/03/18 07:43 77 06/03/18 04:00 76 06/03/18 04:00 97.4 83 20 125/72 (89) 98 97.4 06/03/18 00:00 97.3 72 19 132/81 (98) 97 97.3 06/03/18 00:00 76 Intake and Output 06/02/18 06/03/18 19:00 07:00 Intake Total 55 ml Balance 55 ml IV Total 55 ml # Voids 2 1 Laboratory Tests 06/03/18 04:55: White Blood Count 8.6, Red Blood Count 3.62L, Hemoglobin 11.0L, Hematocrit 33.0L , Mean Corpuscular Volume 91, Mean Corpuscular Hemoglobin 30.5, Mean Corpuscular Hemoglobin Concent 33.5, Red Cell Distribution Width 12.3, Platelet Count 315, Mean Platelet Volume 6.1L, Neutrophils (%) (Auto) 76.3H, Lymphocytes (%) (Auto) 14.2L, Monocytes (%) (Auto) 8.4, Eosinophils (%) (Auto) 0.6, Basophils (%) (Auto) 0.5, Sodium Level 143, Potassium Level 3.2L, Chloride Level 108H, Carbon Dioxide Level 25, Anion Gap 10, Blood Urea Nitrogen 6L, Creatinine 0.8, Estimat Glomerular Filtration Rate , Glucose Level 99, Hemoglobin A1c 5.4, Uric Acid 2.9, Calcium Level 9.2, Phosphorus Level 2.6, Magnesium Level 2.1, Iron Level 28L, Total Iron Binding Capacity 200L, Percent Iron Saturation 14L, Unsaturated Iron Binding 172, Ferritin 107, Total Bilirubin 0.5, Gamma Glutamyl Transpeptidase 25, Aspartate Amino Transf (AST/ SGOT) 22, Alanine Aminotransferase (ALT/SGPT) 17, Alkaline Phosphatase 78, Pro-B -Type Natriuretic Peptide 257H, Total Protein 7.9, Albumin 2.5L, Globulin 5.4, Albumin/Globulin Ratio 0.5L, Triglycerides Level 142, Cholesterol Level 196, LDL Cholesterol 128H, HDL Cholesterol 45, Cholesterol/HDL Ratio 4.4, Vitamin B12 Level 380, Folate 8.8, Thyroid Stimulating Hormone (TSH) 1.016 06/03/18 11:00: White Blood Count 9.6, Red Blood Count 3.69L, Hemoglobin 11.2L, Hematocrit 33.6L , Mean Corpuscular Volume 91, Mean Corpuscular Hemoglobin 30.4, Mean Corpuscular Hemoglobin Concent 33.3, Red Cell Distribution Width 12.3, Platelet Count 277, Mean Platelet Volume 6.4L, Neutrophils (%) (Auto) 73.7, Lymphocytes ( %) (Auto) 17.9L, Monocytes (%) (Auto) 7.2, Eosinophils (%) (Auto) 0.5, Basophils (%) (Auto) 0.7, Activated Partial Thromboplast Time 26 06/03/18 19:30: Activated Partial Thromboplast Time 25 Height (Feet): 5 Height (Inches): 2.00 Weight (Pounds): 105 Neck: supple Cardiovascular: normal rate Respiratory/Chest: lungs clear Abdomen: soft Charles Irizarry MD Jun 03, 2018 21:14
--- NOTE | 2018-06-03 21:30 | Consultation ---
DATE OF CONSULTATION: 06/03/2018 INFECTIOUS DISEASE CONSULTATION CONSULTING PHYSICIAN: Jeronimo Berry M.D. PRIMARY ATTENDING PHYSICIAN: Charles Irizarry M.D. REASON FOR CONSULT: UTI. HISTORY OF PRESENT ILLNESS: The patient is an 88-year-old female, admitted yesterday from home. The patient is admitted because of weakness, talking to herself, not eating well. The patient also had pyuria. According to psychiatrist, the patient has history of psychiatric disorder and non compliant with her medication. PAST MEDICAL HISTORY: Significant for Alzheimer dementia; history of breast cancer, status post radiation, chemotherapy and left mastectomy in 1996. ALLERGIES: To penicillin. MEDICATIONS: Getting IV iron, heparin, Seroquel, Memantine, ceftriaxone, famotidine, Remeron, hydralazine and Tylenol. SOCIAL HISTORY: Lives at home. No history of alcohol, drug abuse or smoking. REVIEW OF SYSTEMS: Non-obtainable, the patient cannot communicate. PHYSICAL EXAMINATION: VITAL SIGNS: Temperature 97.4 degrees, pulse 77, and blood pressure 125/72. GENERAL APPEARANCE: Seems to be thin. HEAD AND NECK: [place] conjunctivae. HEART: S1 and S2. Regular. LUNGS: Clear. ABDOMEN: Soft, flat, and nontender. EXTREMITIES: She has no edema. LABORATORY AND DIAGNOSTIC DATA: WBC is 9.6, hemoglobin 11.2, hematocrit 33.6, and platelets 277. Sodium 143, potassium 3.2, chloride 108, bicarbonate 25, BUN 6 and creatinine 0.8. Albumin is 2.5. UA showed wbc's of 5 to 10, leukocyte esterase 2+, and many bacteria. Chest x-ray negative. CT scan of the head chronic age-related change. Venous duplex showed DVT in her right thigh area. IMPRESSION: Pyuria. The patient may have UTI, altered mental status, worsening of dementia, DVT of right lower extremity, psychiatric problem, failure to thrive, and poor p.o. intake. RECOMMENDATION: We will continue with ceftriaxone. We will follow up the cultures. At the end of my exam, I thank Dr. Irizarry, for involving me in the care of this patient. Jeronimo Berry M.D. DR: SHERRIE JOB#: [id number] CC: TATI
[2018-06-04] VITALS: BP 123/73
[2018-06-04 04:00] VITALS: BP 110/61
[2018-06-04] MEDS ORDERED: Heparin 25,000u/D5W 500ml 500 ML IV SCH ×3 (07:35→18:45)
[2018-06-04 08:00] VITALS: BP 133/63
--- NOTE | 2018-06-04 09:05 | Diagnostic Imaging Report ---
Indication: Abdominal pain Comparison: None Single view of the abdomen obtained Findings: Bowel gas pattern is nonspecific. No mass, ectopic calcifications, or abnormal gas collections are identified. The bones are unremarkable. There are surgical clips in the left hemipelvis. Impression: No acute findings
[2018-06-04] MEDS: D5 1/2NS w/KCl 20mEq 1,000 ML IV SCH ×2 (09:30→20:13)
--- NOTE | 2018-06-04 10:00 | Infectious Diseases Prog Note ---
Assessment/Plan Assessment/Plan A: UTI AMS Dementia, Alzheimer DVT of R leg P: Continue Rocephin Subjective ROS Limited/Unobtainable: Yes Allergies: Coded Allergies: PENICILLINS (Verified Allergy, Unknown, 06/02/18) Objective Vital Signs Last 24 Hour Vital Signs Date Time Temp Pulse Resp B/P (MAP) Pulse Ox O2 Delivery O2 Flow Rate FiO2 06/04/18 04:00 66 06/04/18 04:00 97.3 68 18 110/61 (77) 96 97.3 06/04/18 00:00 97.7 79 20 123/73 (90) 95 97.7 06/04/18 00:00 72 06/03/18 21:00 Room Air 06/03/18 20:00 98.2 65 18 129/82 (98) 97 98.2 06/03/18 20:00 81 06/03/18 16:00 97.5 80 21 99/74 (82) 94 97.5 06/03/18 15:47 75 06/03/18 11:58 74 Height (Feet): 5 Height (Inches): 2.00 Weight (Pounds): 105 General Appearance: no acute distress HEENT: mucous membranes moist Respiratory/Chest: lungs clear Cardiovascular: normal rate Abdomen: soft, non tender Extremities: no edema Neurologic/Psychiatric: other - poorly communicative Microbiology Date/Time Source Procedure Growth Status 06/02/18 11:20 Blood Blood Culture - Preliminary NO GROWTH AFTER 24 HOURS Resulted 06/02/18 11:07 Blood Blood Culture - Preliminary NO GROWTH AFTER 24 HOURS Resulted Laboratory Tests Test 06/03/18 11:00 06/03/18 19:30 06/04/18 05:22 White Blood Count 9.6 K/UL (4.8-10.8) Red Blood Count 3.69 M/UL (4.20-5.40) L Hemoglobin 11.2 G/DL (12.0-16.0) L Hematocrit 33.6 % (37.0-47.0) L Mean Corpuscular Volume 91 FL (80-99) Mean Corpuscular Hemoglobin 30.4 PG (27.0-31.0) Mean Corpuscular Hemoglobin Concent 33.3 G/DL (32.0-36.0) Red Cell Distribution Width 12.3 % (11.6-14.8) Platelet Count 277 K/UL (150-450) Mean Platelet Volume 6.4 FL (6.5-10.1) L Neutrophils (%) (Auto) 73.7 % (45.0-75.0) Lymphocytes (%) (Auto) 17.9 % (20.0-45.0) L Monocytes (%) (Auto) 7.2 % (1.0-10.0) Eosinophils (%) (Auto) 0.5 % (0.0-3.0) Basophils (%) (Auto) 0.7 % (0.0-2.0) Activated Partial Thromboplast Time 26 SEC (23-33) 25 SEC (23-33) 107 SEC (23-33) H Current Medications Medications (Trade) Dose Ordered Sig/Oren Route PRN Reason Start Time Stop Time Status Last Admin Dose Admin Acetaminophen (Tylenol) 500 mg Q4H PRN ORAL Mild Pain/Temp > 100.5 06/02/18 16:00 07/02/18 15:59 Ceftriaxone Sodium 1 gm/ Dextrose 55 ml @ 110 mls/hr DAILY IVPB 06/03/18 09:00 06/10/18 08:59 06/03/18 09:44 Dextrose/ Electrolytes 1,000 ml @ 50 mls/hr Q20H IV 06/02/18 17:30 07/02/18 17:29 06/03/18 14:14 Famotidine (Pepcid I.v.) 10 mg Q12HR IVP 06/02/18 21:00 07/02/18 20:59 06/03/18 22:59 Heparin Sodium/ Dextrose 500 ml @ 18.098 mls/ hr adjust per protocol IV 06/04/18 07:35 07/04/18 07:34 06/04/18 08:13 Hydralazine HCl (Apresoline) 25 mg Q6H PRN ORAL for bp over 160 syst 06/02/18 17:30 07/02/18 17:29 Mirtazapine (Remeron) 15 mg BEDTIME ORAL 06/02/18 21:00 07/02/18 20:59 Quetiapine Fumarate (SEROquel) 25 mg DAILY ORAL 06/03/18 09:00 07/03/18 08:59 06/03/18 09:18 Jeronimo eBrry MD Jun 04, 2018 10:00
[2018-06-04] MEDS: cefTRIAXone 1 GM in D5W 55 ML IVPB SCH (10:35)
--- NOTE | 2018-06-04 11:15 | General Progress Note ---
Assessment/Plan Status: stable, progressing Assessment/Plan encephalopathy due to [facility] -cont home meds -provided ro/st Subjective Date patient seen: Jun 04, 2018 Neurologic/Psychiatric: Reports: anxiety, depressed, emotional problems Allergies: Coded Allergies: PENICILLINS (Verified Allergy, Unknown, 06/02/18) Subjective the pt was min verbal. confused. Objective Last 24 Hour Vital Signs Date Time Temp Pulse Resp B/P (MAP) Pulse Ox O2 Delivery O2 Flow Rate FiO2 06/04/18 08:00 97.4 67 18 133/63 (86) 95 97.4 06/04/18 04:00 66 06/04/18 04:00 97.3 68 18 110/61 (77) 96 97.3 06/04/18 00:00 97.7 79 20 123/73 (90) 95 97.7 06/04/18 00:00 72 06/03/18 21:00 Room Air 06/03/18 20:00 98.2 65 18 129/82 (98) 97 98.2 06/03/18 20:00 81 06/03/18 16:00 97.5 80 21 99/74 (82) 94 97.5 06/03/18 15:47 75 06/03/18 11:58 74 Intake and Output 06/03/18 06/04/18 19:00 07:00 Intake Total 300 ml Balance 300 ml Intake Oral 300 ml # Voids 1 2 Laboratory Tests 06/03/18 19:30: Activated Partial Thromboplast Time 25 06/04/18 05:22: Activated Partial Thromboplast Time 107H Height (Feet): 5 Height (Inches): 2.00 Weight (Pounds): 105 General Appearance: no apparent distress, alert - waxing waning Neurologic: depressed affect Wolfgang Rodrigez MD Jun 04, 2018 11:15
[2018-06-04 12:00] VITALS: BP 105/63
--- NOTE | 2018-06-04 13:28 | Nephrology Progress Note ---
Assessment/Plan Problem List: (1) Encephalopathy (2) UTI (urinary tract infection) (3) Hypokalemia (4) Breast cancer in female Assessment: remote history (5) Dementia (6) Malnutrition Assessment UTI- HypoKalemia Dementia Remote h/o Breast Ca- Right Mastectomy- s/p chemo and radiation Plan Rocephin for UTI Hydrate with K supplement B12 and Iron one dose per orders Subjective ROS Limited/Unobtainable: No Constitutional: Reports: weakness Objective Objective Last 24 Hour Vital Signs Date Time Temp Pulse Resp B/P (MAP) Pulse Ox O2 Delivery O2 Flow Rate FiO2 06/04/18 08:00 97.4 67 18 133/63 (86) 95 97.4 06/04/18 04:00 66 06/04/18 04:00 97.3 68 18 110/61 (77) 96 97.3 06/04/18 00:00 97.7 79 20 123/73 (90) 95 97.7 06/04/18 00:00 72 06/03/18 21:00 Room Air 06/03/18 20:00 98.2 65 18 129/82 (98) 97 98.2 06/03/18 20:00 81 06/03/18 16:00 97.5 80 21 99/74 (82) 94 97.5 06/03/18 15:47 75 Intake and Output 06/03/18 06/04/18 19:00 07:00 Intake Total 300 ml Balance 300 ml Intake Oral 300 ml # Voids 1 2 Laboratory Tests 06/03/18 19:30: Activated Partial Thromboplast Time 25 06/04/18 05:22: Activated Partial Thromboplast Time 107H Height (Feet): 5 Height (Inches): 2.00 Weight (Pounds): 105 General Appearance: no apparent distress Cardiovascular: normal rate Respiratory/Chest: lungs clear Abdomen: soft Objective no change Ortega Virgen MD Jun 04, 2018 13:28
--- NOTE | 2018-06-04 15:57 | Diagnostic Imaging Report ---
APPROVED REPORT CPT Code: 53211 Present Symptoms Comments: R/O DVT RIGHT LEG: Venous imaging reveals non-occlusive acute thrombus in the common femoral to proximal superficial femoral veins. Remainder of the deep venous system within normal limits. No evidence of thrombus in the popliteal vein and calf veins. Greater saphenous vein also within normal limits. LEFT LEG: Venous imaging reveals a patent deep venous system. There is no evidence of thrombus within the femoral, popliteal or tibial segments. The greater saphenous vein is also within normal limits. Doppler indicates normal spontaneous flow within these segments. MARY ANN Regan was notified of abnormal results at 0950 hours.
[2018-06-04 16:00] VITALS: BP 101/61
[2018-06-04] MEDS ORDERED: Heparin 5000 units/ml inj IV SCH ×2 (16:25→16:32)
--- NOTE | 2018-06-04 16:37 | Pulmonology Progress Note ---
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 She had a prior DVT, it is unclear if that was provoked or not and whether she is off A/C 2/2 fall/bleed risk or that she completed the course of treatment. Nonetheless, I started her on IV unfractionated heparin while she is in the hospital and we can decide on continued A/C over the course of the next day or two. One option would be to place an IVC filter. A KUB was done and does not demonstrate an IVC filter. Alternatively, if she is able to tolerate A/C we can continue low dose A/C (i.e Apixaban 2.5 BID) cautiously with extreme fall precautions. Furthemore, we need to address her goals of care. Given her advanced dementia a more conservative approach may be the most appropriate. Message left for daughter/AMELIA Putnam Subjective Allergies: Coded Allergies: PENICILLINS (Verified Allergy, Unknown, 06/02/18) Subjective ANA, AFVSS, stable on RA Eri A/C, no IVCF on KUB No complaints, no SOB, no CP, no F/C Message left for kareem/AMELIA Putnam Objective Last 24 Hour Vital Signs Date Time Temp Pulse Resp B/P (MAP) Pulse Ox O2 Delivery O2 Flow Rate FiO2 06/04/18 16:00 98.0 84 18 101/61 (74) 95 98.0 06/04/18 12:00 66 06/04/18 12:00 97.2 72 18 105/63 (77) 95 97.2 06/04/18 09:00 Room Air 06/04/18 08:00 97.4 67 18 133/63 (86) 95 97.4 06/04/18 08:00 66 06/04/18 04:00 66 06/04/18 04:00 97.3 68 18 110/61 (77) 96 97.3 06/04/18 00:00 97.7 79 20 123/73 (90) 95 97.7 06/04/18 00:00 72 06/03/18 21:00 Room Air 06/03/18 20:00 98.2 65 18 129/82 (98) 97 98.2 06/03/18 20:00 81 Intake and Output 06/03/18 06/04/18 19:00 07:00 Intake Total 300 ml Balance 300 ml Intake Oral 300 ml # Voids 1 2 General Appearance: no acute distress, cachetic HEENT: normocephalic, atraumatic, anicteric, mucous membranes moist Respiratory/Chest: chest wall non-tender, lungs clear, normal breath sounds, no respiratory distress, no accessory muscle use Cardiovascular: normal peripheral pulses, normal rate, regular rhythm Abdomen: normal bowel sounds, soft, non tender, no organomegaly, non distended Extremities: no cyanosis, no clubbing, no edema Microbiology Date/Time Source Procedure Growth Status 06/02/18 11:20 Blood Blood Culture - Preliminary NO GROWTH AFTER 24 HOURS Resulted 06/02/18 11:07 Blood Blood Culture - Preliminary NO GROWTH AFTER 24 HOURS Resulted 06/02/18 11:07 Urine,Clean Catch Urine Culture - Preliminary Gram Negative Bacillus 1 Resulted Laboratory Tests 06/03/18 19:30: Activated Partial Thromboplast Time 25 06/04/18 05:22: Activated Partial Thromboplast Time 107H 06/04/18 15:35: Activated Partial Thromboplast Time 50H Current Medications Medications (Trade) Dose Ordered Sig/Oren Route PRN Reason Start Time Stop Time Status Last Admin Dose Admin Acetaminophen (Tylenol) 500 mg Q4H PRN ORAL Mild Pain/Temp > 100.5 06/02/18 16:00 07/02/18 15:59 Ceftriaxone Sodium 1 gm/ Dextrose 55 ml @ 110 mls/hr DAILY IVPB 06/03/18 09:00 06/10/18 08:59 06/04/18 10:35 Dextrose/ Electrolytes 1,000 ml @ 50 mls/hr Q20H IV 06/02/18 17:30 07/02/18 17:29 06/03/18 14:14 Famotidine (Pepcid I.v.) 10 mg Q12HR IVP 06/02/18 21:00 07/02/18 20:59 06/04/18 10:36 Heparin Sodium (Porcine) (Heparin 5000 units/ml) 3,500 units ONCE IV 06/04/18 16:32 06/04/18 17:32 Heparin Sodium/ Dextrose 500 ml @ 21.908 mls/ hr adjust per protocol IV 06/04/18 16:30 07/04/18 16:29 Hydralazine HCl (Apresoline) 25 mg Q6H PRN ORAL for bp over 160 syst 06/02/18 17:30 07/02/18 17:29 Mirtazapine (Remeron) 15 mg BEDTIME ORAL 06/02/18 21:00 07/02/18 20:59 Quetiapine Fumarate (SEROquel) 25 mg DAILY ORAL 06/03/18 09:00 07/03/18 08:59 06/04/18 10:35 Lior Rios MD Jun 04, 2018 16:37
[2018-06-04] MEDS ORDERED: HydrALAZINE 25mg tab ORAL PRN (19:00)
[2018-06-04] MEDS ORDERED: Acetaminophen 500mg (ES) tab ORAL PRN (19:00)
[2018-06-04 20:00] VITALS: BP 132/80
--- NOTE | 2018-06-04 20:50 | General Progress Note ---
Assessment/Plan Problem List: (1) Encephalopathy ICD Codes: G93.40 - Encephalopathy, unspecified SNOMED: 91169333 (2) UTI (urinary tract infection) ICD Codes: N39.0 - Urinary tract infection, site not specified SNOMED: 99389010 (3) Breast cancer in female ICD Codes: C50.919 - Malignant neoplasm of unspecified site of unspecified female breast SNOMED: 012255654 (4) Hypokalemia ICD Codes: E87.6 - Hypokalemia SNOMED: 80785037 (5) Dementia ICD Codes: F03.90 - Unspecified dementia without behavioral disturbance SNOMED: 25587745 Status: progressing Assessment/Plan ams uti is improving afebrile vitals stable reviewed chart and labs Subjective ROS Limited/Unobtainable: Yes Allergies: Coded Allergies: PENICILLINS (Verified Allergy, Unknown, 06/02/18) Objective Last 24 Hour Vital Signs Date Time Temp Pulse Resp B/P (MAP) Pulse Ox O2 Delivery O2 Flow Rate FiO2 06/04/18 20:00 98.0 104 18 132/80 (97) 95 98.0 06/04/18 16:00 98.0 84 18 101/61 (74) 95 98.0 06/04/18 16:00 85 06/04/18 12:00 66 06/04/18 12:00 97.2 72 18 105/63 (77) 95 97.2 06/04/18 09:00 Room Air 06/04/18 08:00 97.4 67 18 133/63 (86) 95 97.4 06/04/18 08:00 66 06/04/18 04:00 66 06/04/18 04:00 97.3 68 18 110/61 (77) 96 97.3 06/04/18 00:00 97.7 79 20 123/73 (90) 95 97.7 06/04/18 00:00 72 06/03/18 21:00 Room Air Intake and Output 06/03/18 06/04/18 19:00 07:00 Intake Total 300 ml Balance 300 ml Intake Oral 300 ml # Voids 1 2 Laboratory Tests 06/04/18 05:22: Activated Partial Thromboplast Time 107H 06/04/18 15:35: Activated Partial Thromboplast Time 50H Height (Feet): 5 Height (Inches): 2.00 Weight (Pounds): 105 Charles Irizarry MD Jun 04, 2018 20:50
[2018-06-05] VITALS: BP 103/60
[2018-06-05] MEDS: Heparin 25,000u/D5W 500ml 500 ML IV SCH (00:53)
[2018-06-05 04:00] VITALS: BP 115/64
[2018-06-05 08:00] VITALS: BP 103/65
[2018-06-05] MEDS ORDERED: cefTRIAXone 1 GM in D5W 55 ML IVPB SCH (09:00)
--- NOTE | 2018-06-05 10:18 | Nephrology Progress Note ---
Assessment/Plan Problem List: (1) Encephalopathy (2) UTI (urinary tract infection) (3) Hypokalemia (4) Breast cancer in female Assessment: remote history (5) Dementia (6) Malnutrition Assessment UTI- HypoKalemia Dementia Remote h/o Breast Ca- Right Mastectomy- s/p chemo and radiation Plan no labs today Rocephin for UTI Hydrate with K supplement B12 and Iron one dose per orders Subjective ROS Limited/Unobtainable: No Objective Objective Last 24 Hour Vital Signs Date Time Temp Pulse Resp B/P (MAP) Pulse Ox O2 Delivery O2 Flow Rate FiO2 06/05/18 08:00 97.8 64 19 103/65 (78) 94 97.8 06/05/18 04:00 97.3 68 20 115/64 (81) 100 97.3 06/05/18 00:00 97.4 92 20 103/60 (74) 93 97.4 06/04/18 21:00 Room Air 06/04/18 20:00 98.0 104 18 132/80 (97) 95 98.0 06/04/18 16:00 98.0 84 18 101/61 (74) 95 98.0 06/04/18 16:00 85 06/04/18 12:00 66 06/04/18 12:00 97.2 72 18 105/63 (77) 95 97.2 Intake and Output 06/04/18 06/05/18 19:00 07:00 Intake Total 530 ml 558.122 ml Output Total 600 ml Balance -70 ml 558.122 ml Intake Oral 480 ml IV Total 50 ml 558.122 ml Output Urine Total 600 ml Laboratory Tests 06/04/18 15:35: Activated Partial Thromboplast Time 50H 06/04/18 22:56: Activated Partial Thromboplast Time 142H 06/05/18 07:10: Activated Partial Thromboplast Time 92H, Ferritin 116 Height (Feet): 5 Height (Inches): 2.00 Weight (Pounds): 105 General Appearance: no apparent distress Cardiovascular: normal rate Respiratory/Chest: decreased breath sounds Abdomen: soft Objective no change Ortega Virgen MD Jun 05, 2018 10:18
[2018-06-05 12:00] VITALS: BP 132/49
--- NOTE | 2018-06-05 13:55 | Infectious Diseases Prog Note ---
Assessment/Plan Assessment/Plan A: UTI with E. coli AMS Dementia, Alzheimer DVT of R leg P: discontinue Rocephin Start on Cipro Subjective ROS Limited/Unobtainable: Yes Allergies: Coded Allergies: PENICILLINS (Verified Allergy, Unknown, 06/02/18) Objective Vital Signs Last 24 Hour Vital Signs Date Time Temp Pulse Resp B/P (MAP) Pulse Ox O2 Delivery O2 Flow Rate FiO2 06/05/18 12:00 98.0 78 20 132/49 (76) 94 98.0 06/05/18 08:45 Room Air 06/05/18 08:00 97.8 64 19 103/65 (78) 94 97.8 06/05/18 04:00 97.3 68 20 115/64 (81) 100 97.3 06/05/18 00:00 97.4 92 20 103/60 (74) 93 97.4 06/04/18 21:00 Room Air 06/04/18 20:00 98.0 104 18 132/80 (97) 95 98.0 06/04/18 16:00 98.0 84 18 101/61 (74) 95 98.0 06/04/18 16:00 85 Height (Feet): 5 Height (Inches): 2.00 Weight (Pounds): 105 General Appearance: no acute distress HEENT: mucous membranes moist Respiratory/Chest: lungs clear Cardiovascular: normal rate Abdomen: soft, non tender Extremities: no edema Neurologic/Psychiatric: other - awake, non communicative Laboratory Tests Test 06/04/18 15:35 06/04/18 22:56 06/05/18 07:10 Activated Partial Thromboplast Time 50 SEC (23-33) H 142 SEC (23-33) H 92 SEC (23-33) H Ferritin 116 NG/ML (8-388) Current Medications Medications (Trade) Dose Ordered Sig/Oren Route PRN Reason Start Time Stop Time Status Last Admin Dose Admin Acetaminophen (Tylenol) 500 mg Q4H PRN ORAL Mild Pain/Temp > 100.5 06/04/18 19:00 07/02/18 18:59 Ceftriaxone Sodium 1 gm/ Dextrose 55 ml @ 110 mls/hr DAILY IVPB 06/05/18 09:00 06/10/18 08:59 06/05/18 09:03 Dextrose/ Electrolytes 1,000 ml @ 50 mls/hr Q20H IV 06/04/18 18:45 07/02/18 17:29 06/04/18 20:13 Heparin Sodium/ Dextrose 500 ml @ 19.051 mls/ hr adjust per protocol IV 06/05/18 00:45 07/05/18 00:44 06/05/18 00:53 Hydralazine HCl (Apresoline) 25 mg Q6H PRN ORAL for bp over 160 syst 06/04/18 19:00 07/02/18 18:59 Mirtazapine (Remeron) 15 mg BEDTIME ORAL 06/04/18 21:00 07/02/18 20:59 06/04/18 21:39 Pantoprazole (Protonix) 40 mg DAILY ORAL 06/06/18 09:00 07/06/18 08:59 Quetiapine Fumarate (SEROquel) 25 mg DAILY ORAL 06/05/18 09:00 07/03/18 08:59 06/05/18 09:02 Jeronimo Berry MD Jun 05, 2018 13:55
--- NOTE | 2018-06-05 14:15 | General Progress Note ---
Assessment/Plan Assessment/Plan encephalopathy due to [facility] -cont home meds -provided ro/st seroquel prn Subjective Neurologic/Psychiatric: Reports: anxiety, depressed, emotional problems Allergies: Coded Allergies: PENICILLINS (Verified Allergy, Unknown, 06/02/18) Subjective the pt was min verbal. confused. Objective Last 24 Hour Vital Signs Date Time Temp Pulse Resp B/P (MAP) Pulse Ox O2 Delivery O2 Flow Rate FiO2 06/05/18 12:00 98.0 78 20 132/49 (76) 94 98.0 06/05/18 08:45 Room Air 06/05/18 08:00 97.8 64 19 103/65 (78) 94 97.8 06/05/18 04:00 97.3 68 20 115/64 (81) 100 97.3 06/05/18 00:00 97.4 92 20 103/60 (74) 93 97.4 06/04/18 21:00 Room Air 06/04/18 20:00 98.0 104 18 132/80 (97) 95 98.0 06/04/18 16:00 98.0 84 18 101/61 (74) 95 98.0 06/04/18 16:00 85 Intake and Output 06/04/18 06/05/18 19:00 07:00 Intake Total 530 ml 558.122 ml Output Total 600 ml Balance -70 ml 558.122 ml Intake Oral 480 ml IV Total 50 ml 558.122 ml Output Urine Total 600 ml Laboratory Tests 06/04/18 15:35: Activated Partial Thromboplast Time 50H 06/04/18 22:56: Activated Partial Thromboplast Time 142H 06/05/18 07:10: Activated Partial Thromboplast Time 92H, Ferritin 116 Height (Feet): 5 Height (Inches): 2.00 Weight (Pounds): 105 General Appearance: no apparent distress, confused, agitated Wolfgang Rodrigez MD Jun 05, 2018 14:15
--- NOTE | 2018-06-05 14:30 | Pulmonology Progress Note ---
Assessment/Plan Assessment/Plan ASSESSMENT: Acute RLE non-occlusive DVT H/O prior DVT not on A/C Fall risk Advanced alzheimer dementia AMS, likely toxic metabolic encephalopathy on top of underlying dementia UTI H/O Br CA S/P surgery/chemo/RT PLAN: This patient clearly poses a fall risk which is a concern for manager terminal A/C. She had a prior DVT, it is unclear if that was provoked or not and whether she is off A/C 2/2 fall/bleed risk or that she completed the course of treatment. I discussed the case with her daughter, Indy, and Dr Foley (her PMD) @ [facility]'s coverage. Given her advanced age, dementia and fall risk we will continue A/C for now but will likely place an IVC filter prior to D/C and then D/C home off A /C. Given her advanced dementia a more conservative approach may be the most appropriate. Message left for kareem/AMELIA Putnam Subjective Allergies: Coded Allergies: PENICILLINS (Verified Allergy, Unknown, 06/02/18) Subjective ANA, AFVSS, stable on RA Eri A/C No complaints, no SOB, no CP, no F/C D/W kareem/AMELIA Putnam and PMD @ [facility] (Dr. Foley's) coverage Objective Last 24 Hour Vital Signs Date Time Temp Pulse Resp B/P (MAP) Pulse Ox O2 Delivery O2 Flow Rate FiO2 06/05/18 12:00 98.0 78 20 132/49 (76) 94 98.0 06/05/18 08:45 Room Air 06/05/18 08:00 97.8 64 19 103/65 (78) 94 97.8 06/05/18 04:00 97.3 68 20 115/64 (81) 100 97.3 06/05/18 00:00 97.4 92 20 103/60 (74) 93 97.4 06/04/18 21:00 Room Air 06/04/18 20:00 98.0 104 18 132/80 (97) 95 98.0 06/04/18 16:00 98.0 84 18 101/61 (74) 95 98.0 06/04/18 16:00 85 Intake and Output 06/04/18 06/05/18 19:00 07:00 Intake Total 530 ml 558.122 ml Output Total 600 ml Balance -70 ml 558.122 ml Intake Oral 480 ml IV Total 50 ml 558.122 ml Output Urine Total 600 ml General Appearance: no acute distress, cachetic HEENT: normocephalic, atraumatic, anicteric, mucous membranes moist Respiratory/Chest: chest wall non-tender, lungs clear, normal breath sounds, no respiratory distress, no accessory muscle use Cardiovascular: normal peripheral pulses, normal rate, regular rhythm Abdomen: normal bowel sounds, soft, non tender, no organomegaly, non distended , no mass Extremities: no cyanosis, no clubbing, no edema Laboratory Tests 06/04/18 15:35: Activated Partial Thromboplast Time 50H 06/04/18 22:56: Activated Partial Thromboplast Time 142H 06/05/18 07:10: Activated Partial Thromboplast Time 92H, Ferritin 116 Current Medications Medications (Trade) Dose Ordered Sig/Oren Route PRN Reason Start Time Stop Time Status Last Admin Dose Admin Acetaminophen (Tylenol) 500 mg Q4H PRN ORAL Mild Pain/Temp > 100.5 06/04/18 19:00 07/02/18 18:59 Ciprofloxacin (Cipro 500mg tab) 500 mg EVERY 12 HOURS ORAL 06/05/18 21:00 06/12/18 20:59 Dextrose/ Electrolytes 1,000 ml @ 50 mls/hr Q20H IV 06/04/18 18:45 07/02/18 17:29 06/04/18 20:13 Heparin Sodium/ Dextrose 500 ml @ 19.051 mls/ hr adjust per protocol IV 06/05/18 00:45 07/05/18 00:44 06/05/18 00:53 Hydralazine HCl (Apresoline) 25 mg Q6H PRN ORAL for bp over 160 syst 06/04/18 19:00 07/02/18 18:59 Mirtazapine (Remeron) 15 mg BEDTIME ORAL 06/04/18 21:00 07/02/18 20:59 06/04/18 21:39 Pantoprazole (Protonix) 40 mg DAILY ORAL 06/06/18 09:00 07/06/18 08:59 Quetiapine Fumarate (SEROquel) 25 mg DAILY ORAL 06/05/18 09:00 07/03/18 08:59 06/05/18 09:02 Quetiapine Fumarate (SEROquel) 25 mg EVERY 6 HOURS PRN ORAL For Anxiety 06/05/18 14:15 07/05/18 14:14 Lior Rios MD Jun 05, 2018 14:30
[2018-06-05] MEDS: D5 1/2NS w/KCl 20mEq 1,000 ML IV SCH (14:44)
--- NOTE | 2018-06-05 14:53 | General Progress Note ---
Assessment/Plan Problem List: (1) Encephalopathy ICD Codes: G93.40 - Encephalopathy, unspecified SNOMED: 61295736 (2) UTI (urinary tract infection) ICD Codes: N39.0 - Urinary tract infection, site not specified SNOMED: 76661874 (3) Breast cancer in female ICD Codes: C50.919 - Malignant neoplasm of unspecified site of unspecified female breast SNOMED: 458182371 (4) Hypokalemia ICD Codes: E87.6 - Hypokalemia SNOMED: 08971283 (5) Dementia ICD Codes: F03.90 - Unspecified dementia without behavioral disturbance SNOMED: 33127437 Status: progressing Assessment/Plan ams uti is improving low k blood clot.treatment per dr mark dhaliwal for bleeding Subjective ROS Limited/Unobtainable: Yes Allergies: Coded Allergies: PENICILLINS (Verified Allergy, Unknown, 06/02/18) Objective Last 24 Hour Vital Signs Date Time Temp Pulse Resp B/P (MAP) Pulse Ox O2 Delivery O2 Flow Rate FiO2 06/05/18 12:00 98.0 78 20 132/49 (76) 94 98.0 06/05/18 08:45 Room Air 06/05/18 08:00 97.8 64 19 103/65 (78) 94 97.8 06/05/18 04:00 97.3 68 20 115/64 (81) 100 97.3 06/05/18 00:00 97.4 92 20 103/60 (74) 93 97.4 06/04/18 21:00 Room Air 06/04/18 20:00 98.0 104 18 132/80 (97) 95 98.0 06/04/18 16:00 98.0 84 18 101/61 (74) 95 98.0 06/04/18 16:00 85 Intake and Output 06/04/18 06/05/18 19:00 07:00 Intake Total 530 ml 558.122 ml Output Total 600 ml Balance -70 ml 558.122 ml Intake Oral 480 ml IV Total 50 ml 558.122 ml Output Urine Total 600 ml Laboratory Tests 06/04/18 15:35: Activated Partial Thromboplast Time 50H 06/04/18 22:56: Activated Partial Thromboplast Time 142H 06/05/18 07:10: Activated Partial Thromboplast Time 92H, Ferritin 116 Height (Feet): 5 Height (Inches): 2.00 Weight (Pounds): 105 Cardiovascular: normal rate Respiratory/Chest: lungs clear Abdomen: soft Charles Irizarry MD Jun 05, 2018 14:53
[2018-06-05 16:00] VITALS: BP 105/50
[2018-06-05] MEDS ORDERED: Pneumococcal Vaccine 25mcg/0.5ml IM ONE (17:00)
[2018-06-05 20:00] VITALS: BP 92/55
[2018-06-05] MEDS: Ciprofloxacin 500mg tab ORAL SCH (20:59)
--- NOTE | 2018-06-05 21:15 | Consultation ---
DATE OF CONSULTATION: 06/04/2018 HEMATOLOGY/ONCOLOGY CONSULTATION It is a late entry. CONSULTING PHYSICIAN: Wang Mares M.D. REQUESTING PHYSICIAN: Charles Irizarry M.D. REASON FOR CONSULTATION: Evaluation of ongoing anemia and evaluation of breast cancer. IDENTIFICATION DATA: Dear Dr. Irizarry, The patient is a pleasant 88-year-old female with history of breast cancer, status post chemotherapy and radiation with left mastectomy in 1996, at this time presents to the hospital with muscle weakness has been having pyuria, has been seen by psychiatrist, has been noncompliant with medications, seen by Nephrology Service for Infectious Disease. Further evaluate if needed. She is on antibiotics. PAST MEDICAL HISTORY: Alzheimer disease, breast cancer, status post radiation, chemo, and left mastectomy. ALLERGIES: Penicillin. MEDICATIONS: Heparin, Seroquel, Memantine, ceftriaxone, , hydralazine, Remeron, and Tylenol. SOCIAL HISTORY: Lives at home. No alcohol, tobacco, or illicit drug use. REVIEW OF SYSTEMS: Difficult to obtain. Cannot communicate. PHYSICAL EXAMINATION: VITAL SIGNS: Reviewed. GENERAL: No acute distress. PULMONARY: Decreased breath sounds. CARDIOVASCULAR: Regular rate. No S3 or S4. ABDOMEN: Soft, nontender, and nondistended. EXTREMITIES: A 1+ edema. LABORATORY DATA: WBC 9.6, hemoglobin 11.2, hematocrit 34, and platelet count 377,000. INR is 1. PTT of 92. IMAGING: Duplex of the lower extremity reviewed shows nonocclusive acute thrombus in the femoral to proximal superficial area. ASSESSMENT AND RECOMMENDATIONS: 1. Left leg femoral to proximal deep venous thrombosis. At this time, the patient is on anticoagulation with heparin drip. Currently, hemoglobin improved. Hemoglobin currently at 11.2. No significant evidence of bleed, however, may consider to place the patient on low dose apixaban and potentially withhold IVC filter though that is an option. I have reviewed Pulmonary note. 2. History of breast cancer, status post chemotherapy and radiation and surgery. 3. Altered mental status, likely encephalopathy. 4. Dementia. 5. Urinary tract infection, status post antibiotics. 6. Dementia. Seen by Neurology. 7. Fall risk. Further evaluation as needed with Neurological Service. 8. Depression. Seen by Psychiatry. Wang Senthil Mares DR: DIAZ JOB#: [id number] CC:
[2018-06-06] VITALS (8 sets, daily range): BP systolic 102–135; BP diastolic 54–70
[2018-06-06] MEDS: Heparin 25,000u/D5W 500ml 500 ML IV SCH (03:24)
[2018-06-06 04:18] LABS: BASOPHILS % (AUTO) 0.4 % (0.0-2.0); EOSINOPHILS % (AUTO) 1.3 % (0.0-3.0); HEMATOCRIT 31.9 % (37.0-47.0); HEMOGLOBIN 11.1 G/DL (12.0-16.0); LYMPHOCYTES % (AUTO) 10.5 % (20.0-45.0); MEAN CORPUSCULAR VOLUME 91 FL (80-99); MONOCYTES % (AUTO) 4.4 % (1.0-10.0); NEUTROPHILS % (AUTO) 83.3 % (45.0-75.0); PLATELET COUNT 329 K/UL (150-450); RED BLOOD COUNT 3.49 M/UL (4.20-5.40); RED CELL DISTRIBUTION WIDTH 12.6 % (11.6-14.8); WHITE BLOOD COUNT 8.5 K/UL (4.8-10.8)
[2018-06-06 04:29] LABS: ALANINE AMINOTRANSFERASE 40 U/L (12-78); ALBUMIN 2.5 G/DL (3.4-5.0); ALBUMIN/GLOBULIN RATIO 0.4 (1.0-2.7); ALKALINE PHOSPHATASE 88 U/L (46-116); ANION GAP 9 mmol/L (5-15); ASPARTATE AMINO TRANSFERASE 35 U/L (15-37); BILIRUBIN,TOTAL 0.3 MG/DL (0.2-1.0); BLOOD UREA NITROGEN 9 mg/dL (7-18); CALCIUM 9.3 MG/DL (8.5-10.1); CARBON DIOXIDE 28 MMOL/L (21-32); CHLORIDE 104 MMOL/L (98-107); CREATININE 0.8 MG/DL (0.55-1.30); PHOSPHORUS 3.3 MG/DL (2.5-4.9); POTASSIUM 4.3 MMOL/L (3.5-5.1); SODIUM 141 MMOL/L (136-145)
[2018-06-06] MEDS ORDERED: Heparin 25,000u/D5W 500ml 500 ML IV SCH ×4 (04:45→23:15)
[2018-06-06] MEDS ORDERED: Heparin 5000 units/ml inj IV SCH (04:45)
[2018-06-06] MEDS: Ciprofloxacin 500mg tab ORAL SCH ×2 (09:51→22:38)
[2018-06-06] MEDS: D5 1/2NS w/KCl 20mEq 1,000 ML IV SCH (10:45)
--- NOTE | 2018-06-06 10:51 | Nephrology Progress Note ---
Assessment/Plan Problem List: (1) Encephalopathy (2) UTI (urinary tract infection) (3) Hypokalemia (4) Breast cancer in female Assessment: remote history (5) Dementia (6) Malnutrition Assessment UTI- HypoKalemia Dementia Remote h/o Breast Ca- Right Mastectomy- s/p chemo and radiation Acute RLE non-occlusive DVT H/O prior DVT not on A/C Fall risk Plan on heparin pending IVC filter? Cipro for uti DC IV fluids B12 and Iron one dose per orders Subjective ROS Limited/Unobtainable: No Constitutional: Reports: malaise Objective Objective Last 24 Hour Vital Signs Date Time Temp Pulse Resp B/P (MAP) Pulse Ox O2 Delivery O2 Flow Rate FiO2 06/06/18 10:06 Room Air 06/06/18 08:00 98.9 86 18 114/65 (81) 98.9 06/06/18 04:00 98.0 77 18 111/59 (76) 95 98.0 06/06/18 00:00 98.5 73 18 135/60 (85) 96 98.5 06/05/18 21:00 Room Air 06/05/18 20:00 98.1 78 16 92/55 (67) 96 98.1 06/05/18 16:00 97.6 77 19 105/50 (68) 95 97.6 06/05/18 12:00 98.0 78 20 132/49 (76) 94 98.0 Intake and Output 06/05/18 06/06/18 19:00 07:00 Intake Total 918.612 ml 613.739 ml Output Total 1200 ml 1100 ml Balance -281.388 ml -486.261 ml Intake Oral 480 ml IV Total 438.612 ml 613.739 ml Output Urine Total 1200 ml 1100 ml Laboratory Tests 06/06/18 04:03: White Blood Count 8.5, Red Blood Count 3.49L, Hemoglobin 11.1L, Hematocrit 31.9L , Mean Corpuscular Volume 91, Mean Corpuscular Hemoglobin 31.8H, Mean Corpuscular Hemoglobin Concent 34.8, Red Cell Distribution Width 12.6, Platelet Count 329, Mean Platelet Volume 5.8L, Neutrophils (%) (Auto) 83.3H, Lymphocytes (%) (Auto) 10.5L, Monocytes (%) (Auto) 4.4, Eosinophils (%) (Auto) 1.3, Basophils (%) (Auto) 0.4, Activated Partial Thromboplast Time 55H, Sodium Level 141, Potassium Level 4.3, Chloride Level 104, Carbon Dioxide Level 28, Anion Gap 9, Blood Urea Nitrogen 9, Creatinine 0.8, Estimat Glomerular Filtration Rate , Glucose Level 91, Uric Acid 2.3L, Calcium Level 9.3, Phosphorus Level 3.3 , Magnesium Level 2.0, Total Bilirubin 0.3, Aspartate Amino Transf (AST/SGOT) 35 , Alanine Aminotransferase (ALT/SGPT) 40, Alkaline Phosphatase 88, Total Protein 8.1, Albumin 2.5L, Globulin 5.6, Albumin/Globulin Ratio 0.4L Height (Feet): 5 Height (Inches): 2.00 Weight (Pounds): 105 General Appearance: no apparent distress Cardiovascular: normal rate Respiratory/Chest: lungs clear Abdomen: soft Objective no change Ortega Virgen MD Jun 06, 2018 10:51
[2018-06-06 11:23] LABS: BASOPHILS % (AUTO) 0.7 % (0.0-2.0); EOSINOPHILS % (AUTO) 0.7 % (0.0-3.0); HEMATOCRIT 32.4 % (37.0-47.0); HEMOGLOBIN 10.9 G/DL (12.0-16.0); LYMPHOCYTES % (AUTO) 15.8 % (20.0-45.0); MEAN CORPUSCULAR VOLUME 91 FL (80-99); MONOCYTES % (AUTO) 8.3 % (1.0-10.0); NEUTROPHILS % (AUTO) 74.5 % (45.0-75.0); PLATELET COUNT 340 K/UL (150-450); RED BLOOD COUNT 3.58 M/UL (4.20-5.40); RED CELL DISTRIBUTION WIDTH 12.4 % (11.6-14.8); WHITE BLOOD COUNT 11.1 K/UL (4.8-10.8)
--- NOTE | 2018-06-06 11:31 | General Progress Note ---
Assessment/Plan Status: stable Assessment/Plan 1. Left leg femoral to proximal deep venous thrombosis. At this time, the patient is on anticoagulation with heparin drip. --> Currently, hemoglobin improved. Hemoglobin currently at 11.2. --> No significant evidence of bleed, however, may consider to place the patient on low dose apixaban and potentially withhold IVC filter though that is an option. --> I have reviewed Pulmonary note. 2. History of breast cancer, status post chemotherapy and radiation and surgery. 3. Altered mental status, likely encephalopathy. 4. Dementia. 5. Urinary tract infection, status post antibiotics. 6. Dementia. Seen by Neurology. 7. Fall risk. Further evaluation as needed with Neurological Service. 8. Depression. Seen by Psychiatry. Subjective Date patient seen: Jun 05, 2018 Time patient seen: 07:00 ROS Limited/Unobtainable: Yes Allergies: Coded Allergies: PENICILLINS (Verified Allergy, Unknown, 06/02/18) All Systems: reviewed and negative except above Subjective Pt awake and alert. No acute events. Objective Last 24 Hour Vital Signs Date Time Temp Pulse Resp B/P (MAP) Pulse Ox O2 Delivery O2 Flow Rate FiO2 06/06/18 10:06 Room Air 06/06/18 08:00 98.9 86 18 114/65 (81) 98.9 06/06/18 04:00 98.0 77 18 111/59 (76) 95 98.0 06/06/18 00:00 98.5 73 18 135/60 (85) 96 98.5 06/05/18 21:00 Room Air 06/05/18 20:00 98.1 78 16 92/55 (67) 96 98.1 06/05/18 16:00 97.6 77 19 105/50 (68) 95 97.6 06/05/18 12:00 98.0 78 20 132/49 (76) 94 98.0 Intake and Output 06/05/18 06/06/18 19:00 07:00 Intake Total 918.612 ml 613.739 ml Output Total 1200 ml 1100 ml Balance -281.388 ml -486.261 ml Intake Oral 480 ml IV Total 438.612 ml 613.739 ml Output Urine Total 1200 ml 1100 ml Laboratory Tests 06/06/18 04:03: White Blood Count 8.5, Red Blood Count 3.49L, Hemoglobin 11.1L, Hematocrit 31.9L , Mean Corpuscular Volume 91, Mean Corpuscular Hemoglobin 31.8H, Mean Corpuscular Hemoglobin Concent 34.8, Red Cell Distribution Width 12.6, Platelet Count 329, Mean Platelet Volume 5.8L, Neutrophils (%) (Auto) 83.3H, Lymphocytes (%) (Auto) 10.5L, Monocytes (%) (Auto) 4.4, Eosinophils (%) (Auto) 1.3, Basophils (%) (Auto) 0.4, Activated Partial Thromboplast Time 55H, Sodium Level 141, Potassium Level 4.3, Chloride Level 104, Carbon Dioxide Level 28, Anion Gap 9, Blood Urea Nitrogen 9, Creatinine 0.8, Estimat Glomerular Filtration Rate , Glucose Level 91, Uric Acid 2.3L, Calcium Level 9.3, Phosphorus Level 3.3 , Magnesium Level 2.0, Total Bilirubin 0.3, Aspartate Amino Transf (AST/SGOT) 35 , Alanine Aminotransferase (ALT/SGPT) 40, Alkaline Phosphatase 88, Total Protein 8.1, Albumin 2.5L, Globulin 5.6, Albumin/Globulin Ratio 0.4L 06/06/18 11:00: White Blood Count [Pending], Red Blood Count [Pending], Hemoglobin [Pending], Hematocrit [Pending], Mean Corpuscular Volume [Pending], Mean Corpuscular Hemoglobin [Pending], Mean Corpuscular Hemoglobin Concent [Pending], Red Cell Distribution Width [Pending], Platelet Count [Pending], Mean Platelet Volume [ Pending], Neutrophils (%) (Auto) [Pending], Lymphocytes (%) (Auto) [Pending], Monocytes (%) (Auto) [Pending], Eosinophils (%) (Auto) [Pending], Basophils (%) (Auto) [Pending], Activated Partial Thromboplast Time [Pending] Height (Feet): 5 Height (Inches): 2.00 Weight (Pounds): 105 General Appearance: no apparent distress EENT: PERRL/EOMI Neck: normal alignment Cardiovascular: normal peripheral pulses Respiratory/Chest: no respiratory distress Abdomen: soft Wang Mares MD Jun 06, 2018 11:31
[2018-06-06] MEDS ORDERED: Eliquis 2.5mg tablet ORAL SCH (14:00)
[2018-06-06] MEDS ORDERED: Heparin 5000 units/ml inj IV ONE (15:15)
--- NOTE | 2018-06-06 15:17 | Pulmonology Progress Note ---
Assessment/Plan Assessment/Plan ASSESSMENT: Acute RLE non-occlusive DVT H/O prior DVT not on A/C Fall risk Advanced alzheimer dementia AMS, likely toxic metabolic encephalopathy on top of underlying dementia UTI H/O Br CA S/P surgery/chemo/RT PLAN: D/C order for LMWH, continue IVUH while in house IVCF on friday Will be D/C'd off A/C Can F/U with Dr. Foley for continued management D/W daughter Indy, Dr. Mares and Dr. Nunez Subjective Allergies: Coded Allergies: PENICILLINS (Verified Allergy, Unknown, 06/02/18) Subjective ANA, AFVSS, stable on RA Eri A/C No complaints, no SOB, no CP, no F/C D/W Indy, patient walks frequently at home and falls Objective Last 24 Hour Vital Signs Date Time Temp Pulse Resp B/P (MAP) Pulse Ox O2 Delivery O2 Flow Rate FiO2 06/06/18 10:06 Room Air 06/06/18 08:00 98.9 86 18 114/65 (81) 98.9 06/06/18 04:00 98.0 77 18 111/59 (76) 95 98.0 06/06/18 00:00 98.5 73 18 135/60 (85) 96 98.5 06/05/18 21:00 Room Air 06/05/18 20:00 98.1 78 16 92/55 (67) 96 98.1 06/05/18 16:00 97.6 77 19 105/50 (68) 95 97.6 Intake and Output 06/05/18 06/06/18 19:00 07:00 Intake Total 918.612 ml 613.739 ml Output Total 1200 ml 1100 ml Balance -281.388 ml -486.261 ml Intake Oral 480 ml IV Total 438.612 ml 613.739 ml Output Urine Total 1200 ml 1100 ml General Appearance: cachetic HEENT: normocephalic, atraumatic, anicteric, mucous membranes moist Respiratory/Chest: chest wall non-tender, lungs clear, normal breath sounds, no respiratory distress, no accessory muscle use Cardiovascular: normal peripheral pulses, normal rate, regular rhythm Abdomen: normal bowel sounds, soft, non tender, no organomegaly, non distended , no mass Extremities: no cyanosis, no clubbing, no edema Laboratory Tests 06/06/18 04:03: White Blood Count 8.5, Red Blood Count 3.49L, Hemoglobin 11.1L, Hematocrit 31.9L , Mean Corpuscular Volume 91, Mean Corpuscular Hemoglobin 31.8H, Mean Corpuscular Hemoglobin Concent 34.8, Red Cell Distribution Width 12.6, Platelet Count 329, Mean Platelet Volume 5.8L, Neutrophils (%) (Auto) 83.3H, Lymphocytes (%) (Auto) 10.5L, Monocytes (%) (Auto) 4.4, Eosinophils (%) (Auto) 1.3, Basophils (%) (Auto) 0.4, Activated Partial Thromboplast Time 55H, Sodium Level 141, Potassium Level 4.3, Chloride Level 104, Carbon Dioxide Level 28, Anion Gap 9, Blood Urea Nitrogen 9, Creatinine 0.8, Estimat Glomerular Filtration Rate , Glucose Level 91, Uric Acid 2.3L, Calcium Level 9.3, Phosphorus Level 3.3 , Magnesium Level 2.0, Total Bilirubin 0.3, Aspartate Amino Transf (AST/SGOT) 35 , Alanine Aminotransferase (ALT/SGPT) 40, Alkaline Phosphatase 88, Total Protein 8.1, Albumin 2.5L, Globulin 5.6, Albumin/Globulin Ratio 0.4L 06/06/18 11:00: White Blood Count 11.1H, Red Blood Count 3.58L, Hemoglobin 10.9L, Hematocrit 32.4L, Mean Corpuscular Volume 91, Mean Corpuscular Hemoglobin 30.5, Mean Corpuscular Hemoglobin Concent 33.7, Red Cell Distribution Width 12.4, Platelet Count 340, Mean Platelet Volume 5.9L, Neutrophils (%) (Auto) 74.5, Lymphocytes ( %) (Auto) 15.8L, Monocytes (%) (Auto) 8.3, Eosinophils (%) (Auto) 0.7, Basophils (%) (Auto) 0.7, Activated Partial Thromboplast Time 126H Current Medications Medications (Trade) Dose Ordered Sig/Oren Route PRN Reason Start Time Stop Time Status Last Admin Dose Admin Acetaminophen (Tylenol) 500 mg Q4H PRN ORAL Mild Pain/Temp > 100.5 06/04/18 19:00 07/02/18 18:59 Ciprofloxacin (Cipro 500mg tab) 500 mg EVERY 12 HOURS ORAL 9/7/18 21:00 06/12/18 20:59 06/06/18 09:51 Enoxaparin Sodium (Lovenox) 50 mg DAILY SUBQ 06/06/18 16:00 07/06/18 15:59 Hydralazine HCl (Apresoline) 25 mg Q6H PRN ORAL for bp over 160 syst 06/04/18 19:00 07/02/18 18:59 Mirtazapine (Remeron) 15 mg BEDTIME ORAL 06/04/18 21:00 07/02/18 20:59 06/05/18 20:59 Pantoprazole (Protonix) 40 mg DAILY ORAL 06/06/18 09:00 07/06/18 08:59 06/06/18 09:51 Quetiapine Fumarate (SEROquel) 25 mg DAILY ORAL 06/05/18 09:00 07/03/18 08:59 06/06/18 09:51 Quetiapine Fumarate (SEROquel) 25 mg EVERY 6 HOURS PRN ORAL For Anxiety 06/05/18 14:15 07/05/18 14:14 Lior Rios MD Jun 06, 2018 15:16
[2018-06-06] MEDS ORDERED: Enoxaparin Sodium 300mg/3ml vial SUBQ SCH (16:00)
--- NOTE | 2018-06-06 16:04 | General Progress Note ---
Assessment/Plan Problem List: (1) Encephalopathy ICD Codes: G93.40 - Encephalopathy, unspecified SNOMED: 20127297 (2) UTI (urinary tract infection) ICD Codes: N39.0 - Urinary tract infection, site not specified SNOMED: 64914518 (3) Breast cancer in female ICD Codes: C50.919 - Malignant neoplasm of unspecified site of unspecified female breast SNOMED: 909123642 (4) Hypokalemia ICD Codes: E87.6 - Hypokalemia SNOMED: 69964684 (5) Dementia ICD Codes: F03.90 - Unspecified dementia without behavioral disturbance SNOMED: 27617019 Status: progressing Assessment/Plan dvt anticoagulation per dr flores uti is improving low k blood clot.treatment per dr flores moniter for bleeding Subjective ROS Limited/Unobtainable: Yes Allergies: Coded Allergies: PENICILLINS (Verified Allergy, Unknown, 06/02/18) Objective Last 24 Hour Vital Signs Date Time Temp Pulse Resp B/P (MAP) Pulse Ox O2 Delivery O2 Flow Rate FiO2 06/06/18 10:06 Room Air 06/06/18 08:00 98.9 86 18 114/65 (81) 98.9 06/06/18 04:00 98.0 77 18 111/59 (76) 95 98.0 06/06/18 00:00 98.5 73 18 135/60 (85) 96 98.5 06/05/18 21:00 Room Air 06/05/18 20:00 98.1 78 16 92/55 (67) 96 98.1 Intake and Output 06/05/18 06/06/18 19:00 07:00 Intake Total 918.612 ml 613.739 ml Output Total 1200 ml 1100 ml Balance -281.388 ml -486.261 ml Intake Oral 480 ml IV Total 438.612 ml 613.739 ml Output Urine Total 1200 ml 1100 ml Laboratory Tests 06/06/18 04:03: White Blood Count 8.5, Red Blood Count 3.49L, Hemoglobin 11.1L, Hematocrit 31.9L , Mean Corpuscular Volume 91, Mean Corpuscular Hemoglobin 31.8H, Mean Corpuscular Hemoglobin Concent 34.8, Red Cell Distribution Width 12.6, Platelet Count 329, Mean Platelet Volume 5.8L, Neutrophils (%) (Auto) 83.3H, Lymphocytes (%) (Auto) 10.5L, Monocytes (%) (Auto) 4.4, Eosinophils (%) (Auto) 1.3, Basophils (%) (Auto) 0.4, Activated Partial Thromboplast Time 55H, Sodium Level 141, Potassium Level 4.3, Chloride Level 104, Carbon Dioxide Level 28, Anion Gap 9, Blood Urea Nitrogen 9, Creatinine 0.8, Estimat Glomerular Filtration Rate , Glucose Level 91, Uric Acid 2.3L, Calcium Level 9.3, Phosphorus Level 3.3 , Magnesium Level 2.0, Total Bilirubin 0.3, Aspartate Amino Transf (AST/SGOT) 35 , Alanine Aminotransferase (ALT/SGPT) 40, Alkaline Phosphatase 88, Total Protein 8.1, Albumin 2.5L, Globulin 5.6, Albumin/Globulin Ratio 0.4L 06/06/18 11:00: White Blood Count 11.1H, Red Blood Count 3.58L, Hemoglobin 10.9L, Hematocrit 32.4L, Mean Corpuscular Volume 91, Mean Corpuscular Hemoglobin 30.5, Mean Corpuscular Hemoglobin Concent 33.7, Red Cell Distribution Width 12.4, Platelet Count 340, Mean Platelet Volume 5.9L, Neutrophils (%) (Auto) 74.5, Lymphocytes ( %) (Auto) 15.8L, Monocytes (%) (Auto) 8.3, Eosinophils (%) (Auto) 0.7, Basophils (%) (Auto) 0.7, Activated Partial Thromboplast Time 126H Height (Feet): 5 Height (Inches): 2.00 Weight (Pounds): 105 Cardiovascular: normal rate Respiratory/Chest: lungs clear Abdomen: soft Charles Irizarry MD Jun 06, 2018 16:04
[2018-06-06 22:23] LABS: BASOPHILS % (AUTO) 0.5 % (0.0-2.0); EOSINOPHILS % (AUTO) 0.6 % (0.0-3.0); HEMATOCRIT 26.8 % (37.0-47.0); HEMOGLOBIN 9.7 G/DL (12.0-16.0); LYMPHOCYTES % (AUTO) 9.5 % (20.0-45.0); MEAN CORPUSCULAR VOLUME 90 FL (80-99); MONOCYTES % (AUTO) 5.3 % (1.0-10.0); NEUTROPHILS % (AUTO) 84.2 % (45.0-75.0); PLATELET COUNT 330 K/UL (150-450); RED BLOOD COUNT 2.98 M/UL (4.20-5.40); RED CELL DISTRIBUTION WIDTH 12.2 % (11.6-14.8); WHITE BLOOD COUNT 11.9 K/UL (4.8-10.8)
[2018-06-06] MEDS ORDERED: Heparin Sod 1000 units/ml 10ml IV ONE (23:15)
[2018-06-07] VITALS: BP 115/69
[2018-06-07 04:00] VITALS: BP 130/75
[2018-06-07] MEDS ORDERED: Heparin 25,000u/D5W 500ml 500 ML IV SCH ×2 (07:10→14:32)
[2018-06-07] MEDS: Ciprofloxacin 500mg tab ORAL SCH ×2 (08:29→20:32)
[2018-06-07 08:42] VITALS: BP 110/64
[2018-06-07] MEDS ORDERED: Eliquis 2.5mg tablet ORAL SCH (09:00)
--- NOTE | 2018-06-07 10:51 | Infectious Diseases Prog Note ---
Assessment/Plan Assessment/Plan A: UTI with E. coli AMS Dementia, Alzheimer DVT of R leg P: continue Cipro Waiting for IVC filter placement Subjective ROS Limited/Unobtainable: Yes Constitutional: Reports: other - doing better, more alert Allergies: Coded Allergies: PENICILLINS (Verified Allergy, Unknown, 06/02/18) Objective Vital Signs Last 24 Hour Vital Signs Date Time Temp Pulse Resp B/P (MAP) Pulse Ox O2 Delivery O2 Flow Rate FiO2 06/07/18 08:42 98.5 72 18 110/64 (79) 98.5 06/07/18 04:00 98.4 80 18 130/75 (93) 98 98.4 06/07/18 00:00 98.0 75 18 115/69 (84) 100 98.0 06/06/18 21:00 Room Air 06/06/18 20:00 98.2 82 18 108/54 (72) 96 98.2 06/06/18 18:20 98.2 88 18 111/62 (78) 95 98.2 06/06/18 17:37 99.3 92 116/58 (77) 99.3 06/06/18 16:26 98.6 95 18 102/68 (79) 97 98.6 06/06/18 16:00 98.6 90 18 114/70 (85) 98.6 Height (Feet): 5 Height (Inches): 2.00 Weight (Pounds): 105 General Appearance: no acute distress HEENT: mucous membranes moist Respiratory/Chest: lungs clear Cardiovascular: normal rate Abdomen: soft, non tender Extremities: no edema Neurologic/Psychiatric: alert Laboratory Tests Test 06/06/18 11:00 06/06/18 22:15 06/07/18 05:20 White Blood Count 11.1 K/UL (4.8-10.8) H 11.9 K/UL (4.8-10.8) H Red Blood Count 3.58 M/UL (4.20-5.40) L 2.98 M/UL (4.20-5.40) L Hemoglobin 10.9 G/DL (12.0-16.0) L 9.7 G/DL (12.0-16.0) L Hematocrit 32.4 % (37.0-47.0) L 26.8 % (37.0-47.0) L Mean Corpuscular Volume 91 FL (80-99) 90 FL (80-99) Mean Corpuscular Hemoglobin 30.5 PG (27.0-31.0) 32.6 PG (27.0-31.0) H Mean Corpuscular Hemoglobin Concent 33.7 G/DL (32.0-36.0) 36.3 G/DL (32.0-36.0) H Red Cell Distribution Width 12.4 % (11.6-14.8) 12.2 % (11.6-14.8) Platelet Count 340 K/UL (150-450) 330 K/UL (150-450) Mean Platelet Volume 5.9 FL (6.5-10.1) L 5.2 FL (6.5-10.1) L Neutrophils (%) (Auto) 74.5 % (45.0-75.0) 84.2 % (45.0-75.0) H Lymphocytes (%) (Auto) 15.8 % (20.0-45.0) L 9.5 % (20.0-45.0) L Monocytes (%) (Auto) 8.3 % (1.0-10.0) 5.3 % (1.0-10.0) Eosinophils (%) (Auto) 0.7 % (0.0-3.0) 0.6 % (0.0-3.0) Basophils (%) (Auto) 0.7 % (0.0-2.0) 0.5 % (0.0-2.0) Activated Partial Thromboplast Time 126 SEC (23-33) H 62 SEC (23-33) H > 150 SEC (23-33) *H Current Medications Medications (Trade) Dose Ordered Sig/Oren Route PRN Reason Start Time Stop Time Status Last Admin Dose Admin Acetaminophen (Tylenol) 500 mg Q4H PRN ORAL Mild Pain/Temp > 100.5 06/04/18 19:00 07/02/18 18:59 Ciprofloxacin (Cipro 500mg tab) 500 mg EVERY 12 HOURS ORAL 06/05/18 21:00 06/12/18 20:59 06/07/18 08:29 Heparin Sodium/ Dextrose 500 ml @ 16.193 mls/ hr ADJUST PER PROTOCOL IV 06/07/18 07:10 07/06/18 15:19 06/07/18 07:11 Hydralazine HCl (Apresoline) 25 mg Q6H PRN ORAL for bp over 160 syst 06/04/18 19:00 07/02/18 18:59 Mirtazapine (Remeron) 15 mg BEDTIME PRN ORAL insomnia 06/06/18 19:45 07/06/18 19:44 Pantoprazole (Protonix) 40 mg DAILY ORAL 06/06/18 09:00 07/06/18 08:59 06/07/18 08:29 Quetiapine Fumarate (SEROquel) 25 mg EVERY 6 HOURS PRN ORAL For Anxiety 06/05/18 14:15 07/05/18 14:14 Jeronimo Berry MD Jun 07, 2018 10:51
--- NOTE | 2018-06-07 11:07 | Nephrology Progress Note ---
Assessment/Plan Problem List: (1) Encephalopathy (2) UTI (urinary tract infection) (3) Hypokalemia (4) Breast cancer in female Assessment: remote history (5) Dementia (6) Malnutrition Assessment UTI- HypoKalemia Dementia Remote h/o Breast Ca- Right Mastectomy- s/p chemo and radiation Acute RLE non-occlusive DVT H/O prior DVT not on A/C Fall risk Plan on heparin pending IVC filter? Cipro for uti DC IV fluids B12 and Iron one dose per orders Subjective ROS Limited/Unobtainable: No Objective Objective Last 24 Hour Vital Signs Date Time Temp Pulse Resp B/P (MAP) Pulse Ox O2 Delivery O2 Flow Rate FiO2 06/07/18 09:00 Room Air 06/07/18 08:42 98.5 72 18 110/64 (79) 98.5 06/07/18 04:00 98.4 80 18 130/75 (93) 98 98.4 06/07/18 00:00 98.0 75 18 115/69 (84) 100 98.0 06/06/18 21:00 Room Air 06/06/18 20:00 98.2 82 18 108/54 (72) 96 98.2 06/06/18 18:20 98.2 88 18 111/62 (78) 95 98.2 06/06/18 17:37 99.3 92 116/58 (77) 99.3 06/06/18 16:26 98.6 95 18 102/68 (79) 97 98.6 06/06/18 16:00 98.6 90 18 114/70 (85) 98.6 Intake and Output 06/06/18 06/07/18 19:00 07:00 Intake Total 288.118 ml 80 ml Output Total 400 ml Balance -111.882 ml 80 ml IV Total 288.118 ml 80 ml Output Urine Total 400 ml Laboratory Tests 06/06/18 22:15: White Blood Count 11.9H, Red Blood Count 2.98L, Hemoglobin 9.7L, Hematocrit 26.8L, Mean Corpuscular Volume 90, Mean Corpuscular Hemoglobin 32.6H, Mean Corpuscular Hemoglobin Concent 36.3H, Red Cell Distribution Width 12.2, Platelet Count 330, Mean Platelet Volume 5.2L, Neutrophils (%) (Auto) 84.2H, Lymphocytes (%) (Auto) 9.5L, Monocytes (%) (Auto) 5.3, Eosinophils (%) (Auto) 0.6, Basophils (%) (Auto) 0.5, Activated Partial Thromboplast Time 62H 06/07/18 05:20: Activated Partial Thromboplast Time > 150*H Height (Feet): 5 Height (Inches): 2.00 Weight (Pounds): 105 General Appearance: no apparent distress Objective no change Ortega Virgen MD Jun 07, 2018 11:07
[2018-06-07 12:00] VITALS: BP 123/57
[2018-06-07] MEDS ORDERED: Heparin 5000 units/ml inj IV SCH (14:31)
[2018-06-07] MEDS ORDERED: Sennosides 8.6mg ORAL SCH (15:43)
--- NOTE | 2018-06-07 15:44 | General Progress Note ---
Assessment/Plan Problem List: (1) Encephalopathy ICD Codes: G93.40 - Encephalopathy, unspecified SNOMED: 37261431 (2) UTI (urinary tract infection) ICD Codes: N39.0 - Urinary tract infection, site not specified SNOMED: 37494207 (3) Breast cancer in female ICD Codes: C50.919 - Malignant neoplasm of unspecified site of unspecified female breast SNOMED: 471065454 (4) Hypokalemia ICD Codes: E87.6 - Hypokalemia SNOMED: 10498179 (5) Dementia ICD Codes: F03.90 - Unspecified dementia without behavioral disturbance SNOMED: 75388678 Status: progressing Assessment/Plan dvt anticoagulation per dr flores uti is improving low k blood clot.treatment per dr flores due to dementia and fall risk is scheduled for ivc filter in am more alert today Subjective ROS Limited/Unobtainable: Yes Allergies: Coded Allergies: PENICILLINS (Verified Allergy, Unknown, 06/02/18) Objective Last 24 Hour Vital Signs Date Time Temp Pulse Resp B/P (MAP) Pulse Ox O2 Delivery O2 Flow Rate FiO2 06/07/18 12:00 98.6 85 18 123/57 (79) 97 98.6 06/07/18 09:00 Room Air 06/07/18 08:42 98.5 72 18 110/64 (79) 98.5 06/07/18 04:00 98.4 80 18 130/75 (93) 98 98.4 06/07/18 00:00 98.0 75 18 115/69 (84) 100 98.0 06/06/18 21:00 Room Air 06/06/18 20:00 98.2 82 18 108/54 (72) 96 98.2 06/06/18 18:20 98.2 88 18 111/62 (78) 95 98.2 06/06/18 17:37 99.3 92 116/58 (77) 99.3 06/06/18 16:26 98.6 95 18 102/68 (79) 97 98.6 06/06/18 16:00 98.6 90 18 114/70 (85) 98.6 Intake and Output 06/06/18 06/07/18 19:00 07:00 Intake Total 288.118 ml 80 ml Output Total 400 ml Balance -111.882 ml 80 ml IV Total 288.118 ml 80 ml Output Urine Total 400 ml Laboratory Tests 06/06/18 22:15: White Blood Count 11.9H, Red Blood Count 2.98L, Hemoglobin 9.7L, Hematocrit 26.8L, Mean Corpuscular Volume 90, Mean Corpuscular Hemoglobin 32.6H, Mean Corpuscular Hemoglobin Concent 36.3H, Red Cell Distribution Width 12.2, Platelet Count 330, Mean Platelet Volume 5.2L, Neutrophils (%) (Auto) 84.2H, Lymphocytes (%) (Auto) 9.5L, Monocytes (%) (Auto) 5.3, Eosinophils (%) (Auto) 0.6, Basophils (%) (Auto) 0.5, Activated Partial Thromboplast Time 62H 06/07/18 05:20: Activated Partial Thromboplast Time > 150*H 06/07/18 13:48: Activated Partial Thromboplast Time 50H Height (Feet): 5 Height (Inches): 2.00 Weight (Pounds): 105 Neck: supple Cardiovascular: normal rate Respiratory/Chest: lungs clear Abdomen: soft Charles Irizarry MD Jun 07, 2018 15:44
[2018-06-07] MEDS ORDERED: Milk of Magnesia 30ml Ud ORAL PRN (15:45)
[2018-06-07] MEDS ORDERED: Sennosides 8.6mg ORAL PRN (15:45)
[2018-06-07 16:00] VITALS: BP 106/59
[2018-06-07] MEDS: Docusate 100mg/10ml Liq ORAL SCH ×2 (18:00→20:36)
[2018-06-07] MEDS ORDERED: Lidocaine 1% Plain 30 ml INJ PRN (19:00)
[2018-06-07 20:00] VITALS: BP 115/63
[2018-06-08] VITALS (13 sets, daily range): BP systolic 97–139; BP diastolic 49–94
[2018-06-08] MEDS: Ciprofloxacin 500mg tab ORAL SCH ×2 (08:12→08:14)
--- NOTE | 2018-06-08 09:05 | Pulmonology Progress Note ---
Assessment/Plan Assessment/Plan ASSESSMENT: Acute RLE non-occlusive DVT H/O prior DVT not on A/C Fall risk Advanced alzheimer dementia AMS, likely toxic metabolic encephalopathy on top of underlying dementia UTI H/O Br CA S/P surgery/chemo/RT PLAN: Hold IVIH IVC filter today Once filter placed would continue A/C while in house but upon D/C would stop A/C Can F/U with Dr. Foley for continued management D/W daughter Indy, Dr. Mares and Dr. Nunez Subjective Allergies: Coded Allergies: PENICILLINS (Verified Allergy, Unknown, 06/02/18) Subjective ANA, AFVSS, stable on RA Eri A/C No complaints, no SOB, no CP, no F/C Objective Last 24 Hour Vital Signs Date Time Temp Pulse Resp B/P (MAP) Pulse Ox O2 Delivery O2 Flow Rate FiO2 06/08/18 04:00 98.2 84 17 139/82 (101) 100 98.2 06/08/18 00:00 98.6 76 17 125/72 (89) 97 98.6 06/07/18 21:00 Room Air 06/07/18 20:00 97.6 73 16 115/63 (80) 93 97.6 06/07/18 16:00 98.0 88 18 106/59 (75) 96 98.0 06/07/18 12:00 98.6 85 18 123/57 (79) 97 98.6 Intake and Output 06/07/18 06/08/18 19:00 07:00 Intake Total 144.784 ml 220.033 ml Output Total 1100 ml 300 ml Balance -955.216 ml -79.967 ml IV Total 144.784 ml 220.033 ml Output Urine Total 1100 ml 300 ml General Appearance: cachetic HEENT: normocephalic, atraumatic, anicteric, mucous membranes moist Respiratory/Chest: chest wall non-tender, lungs clear, normal breath sounds, no respiratory distress, no accessory muscle use Cardiovascular: normal peripheral pulses, normal rate, regular rhythm Abdomen: normal bowel sounds, soft, non tender, no organomegaly, non distended , no mass Extremities: no cyanosis, no clubbing, no edema Laboratory Tests 06/07/18 13:48: Activated Partial Thromboplast Time 50H 06/07/18 20:50: Activated Partial Thromboplast Time 83H 06/08/18 06:40: Activated Partial Thromboplast Time 83H, Prothrombin Time [Pending], Prothromb Time International Ratio [Pending] Current Medications Medications (Trade) Dose Ordered Sig/Oren Route PRN Reason Start Time Stop Time Status Last Admin Dose Admin Acetaminophen (Tylenol) 500 mg Q4H PRN ORAL Mild Pain/Temp > 100.5 06/04/18 19:00 07/02/18 18:59 Ciprofloxacin (Cipro 500mg tab) 500 mg EVERY 12 HOURS ORAL 06/05/18 21:00 06/12/18 20:59 06/07/18 20:32 Docusate Sodium (Colace) 100 mg TWICE A DAY ORAL 06/07/18 18:00 07/07/18 17:59 06/07/18 20:36 Hydralazine HCl (Apresoline) 25 mg Q6H PRN ORAL for bp over 160 syst 06/04/18 19:00 07/02/18 18:59 Lidocaine HCl (Xylocaine 1% 30ml) 30 ml NOW PRN INJ Radiology Procedure 06/07/18 19:00 06/09/18 18:59 Magnesium Hydroxide (Mom) 30 ml DAILYPRN PRN ORAL Constipation 06/07/18 15:45 07/07/18 15:44 Mirtazapine (Remeron) 15 mg BEDTIME PRN ORAL insomnia 06/06/18 19:45 07/06/18 19:44 Pantoprazole (Protonix) 40 mg DAILY ORAL 06/06/18 09:00 07/06/18 08:59 06/07/18 08:29 Quetiapine Fumarate (SEROquel) 25 mg EVERY 6 HOURS PRN ORAL For Anxiety 06/05/18 14:15 07/05/18 14:14 Sennosides (Senokot) 1 tab DAILYPRN PRN ORAL Constipation 06/07/18 15:45 07/07/18 15:44 Lior Rios MD Jun 08, 2018 09:05
--- NOTE | 2018-06-08 10:59 | General Progress Note ---
Assessment/Plan Assessment/Plan 1. Left leg femoral to proximal deep venous thrombosis. At this time, the patient is on a/c and will d/c it prior to ivcF placement --> Currently, hemoglobin improved. Hemoglobin currently at 11.2. --> No significant evidence of bleed, however, may consider to place the patient on low dose apixaban and potentially withhold IVC filter though that is an option. ==> Agree with PCP and Pulm, IVCF placement given high fall risk --> restart a/c after filter and dc it prior to discharged 2. History of breast cancer, status post chemotherapy and radiation and surgery. --> at this time, no evidence for recurrence based on inpatient imaging completed 3. Altered mental status, likely encephalopathy. 4. Dementia. 5. Urinary tract infection, status post antibiotics. 6. Dementia. Seen by Neurology. 7. Fall risk. Further evaluation as needed with Neurological Service. 8. Depression. Seen by Psychiatry. Subjective Constitutional: Denies: no symptoms, chills, diaphoresis, fever, malaise, weakness, other HEENT: Denies: no symptoms, eye pain, blurred vision, tearing, double vision, ear pain, ear discharge, nose pain, nose congestion, throat pain, throat swelling, mouth pain, mouth swelling, other Cardiovascular: Denies: no symptoms, chest pain, edema, irregular heart rate, lightheadedness, palpitations, syncope, other Respiratory: Denies: no symptoms, cough, orthopnea, shortness of breath, SOB with excertion, SOB at rest, sputum, stridor, wheezing, other Gastrointestinal/Abdominal: Denies: no symptoms, abdomen distended, abdominal pain, black stools, tarry stools, blood in stool, constipated, diarrhea, difficulty swallowing, nausea, poor appetite, poor fluid intake, rectal bleeding , vomiting, other Genitourinary: Denies: no symptoms, burning, discharge, frequency, flank pain, hematuria, incontinence, pain, urgency, other Neurologic/Psychiatric: Denies: no symptoms, anxiety, depressed, emotional problems, headache, numbness, paresthesia, pre-existing deficit, seizure, tingling, tremors, weakness, other Endocrine: Denies: no symptoms, excessive sweating, flushing, intolerance to cold, intolerance to heat, increased hunger, increased thirst, increased urine, unexplained weight gain, unexplained weight loss, other Hematologic/Lymphatic: Denies: no symptoms, anemia, easy bleeding, easy bruising, other Allergies: Coded Allergies: PENICILLINS (Verified Allergy, Unknown, 06/02/18) Subjective Pt awake and alert. No acute events. No major issues besides ivcf placement today Objective Last 24 Hour Vital Signs Date Time Temp Pulse Resp B/P (MAP) Pulse Ox O2 Delivery O2 Flow Rate FiO2 06/08/18 09:09 Room Air 06/08/18 08:00 98.2 75 20 100/56 (71) 100 98.2 06/08/18 04:00 98.2 84 17 139/82 (101) 100 98.2 06/08/18 00:00 98.6 76 17 125/72 (89) 97 98.6 06/07/18 21:00 Room Air 06/07/18 20:00 97.6 73 16 115/63 (80) 93 97.6 06/07/18 16:00 98.0 88 18 106/59 (75) 96 98.0 06/07/18 12:00 98.6 85 18 123/57 (79) 97 98.6 Intake and Output 06/07/18 06/08/18 19:00 07:00 Intake Total 144.784 ml 220.033 ml Output Total 1100 ml 300 ml Balance -955.216 ml -79.967 ml IV Total 144.784 ml 220.033 ml Output Urine Total 1100 ml 300 ml Laboratory Tests 06/07/18 13:48: Activated Partial Thromboplast Time 50H 06/07/18 20:50: Activated Partial Thromboplast Time 83H 06/08/18 06:40: Activated Partial Thromboplast Time 83H, Prothrombin Time 10.9, Prothromb Time International Ratio 1.0 Height (Feet): 5 Height (Inches): 2.00 Weight (Pounds): 105 General Appearance: alert EENT: PERRL/EOMI Neck: supple Cardiovascular: regular rhythm Respiratory/Chest: lungs clear Abdomen: no organomegaly Extremities: non-tender Edema: 1+ Leg (L), 1+ Leg (R) Edema: mild edema Neurologic: alert Skin: warm/dry Wang Mares MD Jun 08, 2018 10:59
--- NOTE | 2018-06-08 12:17 | Nephrology Progress Note ---
Assessment/Plan Problem List: (1) Encephalopathy (2) UTI (urinary tract infection) (3) Hypokalemia (4) Breast cancer in female Assessment: remote history (5) Dementia (6) Malnutrition Assessment UTI- HypoKalemia Dementia Remote h/o Breast Ca- Right Mastectomy- s/p chemo and radiation Acute RLE non-occlusive DVT H/O prior DVT not on A/C Fall risk Plan on heparin pending IVC filter? Cipro for uti DC IV fluids B12 and Iron one dose per orders Subjective ROS Limited/Unobtainable: No Constitutional: Reports: malaise Objective Objective Last 24 Hour Vital Signs Date Time Temp Pulse Resp B/P (MAP) Pulse Ox O2 Delivery O2 Flow Rate FiO2 06/08/18 09:09 Room Air 06/08/18 08:00 98.2 75 20 100/56 (71) 100 98.2 06/08/18 04:00 98.2 84 17 139/82 (101) 100 98.2 06/08/18 00:00 98.6 76 17 125/72 (89) 97 98.6 06/07/18 21:00 Room Air 06/07/18 20:00 97.6 73 16 115/63 (80) 93 97.6 06/07/18 16:00 98.0 88 18 106/59 (75) 96 98.0 Intake and Output 06/07/18 06/08/18 19:00 07:00 Intake Total 144.784 ml 220.033 ml Output Total 1100 ml 300 ml Balance -955.216 ml -79.967 ml IV Total 144.784 ml 220.033 ml Output Urine Total 1100 ml 300 ml Laboratory Tests 06/07/18 13:48: Activated Partial Thromboplast Time 50H 06/07/18 20:50: Activated Partial Thromboplast Time 83H 06/08/18 06:40: Activated Partial Thromboplast Time 83H, Prothrombin Time 10.9, Prothromb Time International Ratio 1.0 Height (Feet): 5 Height (Inches): 2.00 Weight (Pounds): 105 General Appearance: no apparent distress Objective no change Ortega Virgen MD Jun 08, 2018 12:17
--- NOTE | 2018-06-08 12:40 | Infectious Diseases Prog Note ---
Assessment/Plan Assessment/Plan A: UTI with E. coli treated AMS Dementia, Alzheimer DVT of R leg P: Discontinue Cipro Waiting for IVC filter placement Subjective ROS Limited/Unobtainable: Yes Psychiatric: Reports: other - looks happy Allergies: Coded Allergies: PENICILLINS (Verified Allergy, Unknown, 06/02/18) Objective Vital Signs Last 24 Hour Vital Signs Date Time Temp Pulse Resp B/P (MAP) Pulse Ox O2 Delivery O2 Flow Rate FiO2 06/08/18 12:00 97.4 76 20 98/54 (69) 95 97.4 06/08/18 09:09 Room Air 06/08/18 08:00 98.2 75 20 100/56 (71) 100 98.2 06/08/18 04:00 98.2 84 17 139/82 (101) 100 98.2 06/08/18 00:00 98.6 76 17 125/72 (89) 97 98.6 06/07/18 21:00 Room Air 06/07/18 20:00 97.6 73 16 115/63 (80) 93 97.6 06/07/18 16:00 98.0 88 18 106/59 (75) 96 98.0 Height (Feet): 5 Height (Inches): 2.00 Weight (Pounds): 105 General Appearance: no acute distress HEENT: mucous membranes moist Respiratory/Chest: lungs clear Cardiovascular: normal rate Abdomen: soft, non tender Extremities: no edema Laboratory Tests Test 06/07/18 13:48 06/07/18 20:50 06/08/18 06:40 Activated Partial Thromboplast Time 50 SEC (23-33) H 83 SEC (23-33) H 83 SEC (23-33) H Prothrombin Time 10.9 SEC (9.30-11.50) Prothromb Time International Ratio 1.0 (0.9-1.1) Current Medications Medications (Trade) Dose Ordered Sig/Oren Route PRN Reason Start Time Stop Time Status Last Admin Dose Admin Acetaminophen (Tylenol) 500 mg Q4H PRN ORAL Mild Pain/Temp > 100.5 06/04/18 19:00 07/02/18 18:59 Ciprofloxacin (Cipro 500mg tab) 500 mg EVERY 12 HOURS ORAL 06/05/18 21:00 06/12/18 20:59 06/07/18 20:32 Docusate Sodium (Colace) 100 mg TWICE A DAY ORAL 06/07/18 18:00 07/07/18 17:59 06/07/18 20:36 Hydralazine HCl (Apresoline) 25 mg Q6H PRN ORAL for bp over 160 syst 06/04/18 19:00 07/02/18 18:59 Lidocaine HCl (Xylocaine 1% 30ml) 30 ml NOW PRN INJ Radiology Procedure 06/07/18 19:00 06/09/18 18:59 Magnesium Hydroxide (Mom) 30 ml DAILYPRN PRN ORAL Constipation 06/07/18 15:45 07/07/18 15:44 Mirtazapine (Remeron) 15 mg BEDTIME PRN ORAL insomnia 06/06/18 19:45 07/06/18 19:44 Pantoprazole (Protonix) 40 mg DAILY ORAL 06/06/18 09:00 07/06/18 08:59 06/07/18 08:29 Quetiapine Fumarate (SEROquel) 25 mg EVERY 6 HOURS PRN ORAL For Anxiety 06/05/18 14:15 07/05/18 14:14 Sennosides (Senokot) 1 tab DAILYPRN PRN ORAL Constipation 06/07/18 15:45 07/07/18 15:44 Jeronimo Berry MD Jun 08, 2018 12:40
--- NOTE | 2018-06-08 13:33 | Pre-Procedure Note/Attestation ---
Pre-Procedure Note/Attestation Complete Prior to Procedure Planned Procedure: not applicable Procedure Narrative: Inferior vena cava filter Indications for Procedure Pre-Operative Diagnosis: DVT, contraindications to anticoagulation Attestation I attest that I discussed the nature of the procedure; its benefits; risks and complications; and alternatives (and the risks and benefits of such alternatives ), prior to the procedure, with the patient (or the patient's legal warehouse representative). I attest that, if there was a reasonable possibility of needing a blood transfusion, the patient (or the patient's legal warehouse representative) was given the [facility] standardized written summary, pursuant to the Lonnie Johnny Blood Safety Act ([place] Health and Safety Code # 1645, as amended). I attest that I re-evaluated the patient just prior to the surgery and that there has been no change in the patient's H&P, except as documented below: Discussed by phone with pt's daughter Teressa, including recommendation for permanent IVC filter Warren Hi MD Jun 08, 2018 13:33
[2018-06-08] MEDS ORDERED: Heparin 2000 units/Ns 1000ml 1,000 ML ONE (13:35)
--- NOTE | 2018-06-08 15:33 | Brief Operative Note ---
Immediate Post Operative Note Operative Note Pre-op Diagnosis: DVT, contraindications to anticoagulation Procedure: IVC filter Post-op Diagnosis: same Post-op Diagnosis: same as pre-op Surgeon: Ridge HI Anesthesia: local Specimen: none Complications: none Condition: stable Fluids: none Implant(s) used?: Yes - [employer] LG IVC filter Warren Hi MD Jun 08, 2018 15:33
--- NOTE | 2018-06-08 16:10 | General Progress Note ---
Assessment/Plan Assessment/Plan encephalopathy due to c -remeron prn -provided ro/st seroquel prn Subjective Date patient seen: Jun 08, 2018 Neurologic/Psychiatric: Reports: anxiety, depressed, emotional problems Allergies: Coded Allergies: PENICILLINS (Verified Allergy, Unknown, 06/02/18) Subjective the pt was min verbal. confused. more alert Objective Last 24 Hour Vital Signs Date Time Temp Pulse Resp B/P (MAP) Pulse Ox O2 Delivery O2 Flow Rate FiO2 06/08/18 15:15 89 16 111/73 (86) 97 06/08/18 15:10 88 16 103/58 (73) 97 06/08/18 15:05 86 18 97/56 (70) 99 06/08/18 15:00 94 20 121/94 (103) 98 06/08/18 14:55 92 18 115/59 (77) 95 06/08/18 14:50 83 18 105/49 (67) 96 06/08/18 14:45 86 22 107/49 (68) 95 06/08/18 13:57 77 18 06/08/18 12:00 97.4 76 20 98/54 (69) 95 97.4 06/08/18 09:09 Room Air 06/08/18 08:00 98.2 75 20 100/56 (71) 100 98.2 06/08/18 04:00 98.2 84 17 139/82 (101) 100 98.2 06/08/18 00:00 98.6 76 17 125/72 (89) 97 98.6 06/07/18 21:00 Room Air 06/07/18 20:00 97.6 73 16 115/63 (80) 93 97.6 Intake and Output 06/07/18 06/08/18 19:00 07:00 Intake Total 144.784 ml 220.033 ml Output Total 1100 ml 300 ml Balance -955.216 ml -79.967 ml IV Total 144.784 ml 220.033 ml Output Urine Total 1100 ml 300 ml Laboratory Tests 06/07/18 20:50: Activated Partial Thromboplast Time 83H 06/08/18 06:40: Activated Partial Thromboplast Time 83H, Prothrombin Time 10.9, Prothromb Time International Ratio 1.0 Height (Feet): 5 Height (Inches): 2.00 Weight (Pounds): 105 General Appearance: no apparent distress, alert, confused Wolfgang Rodrigez MD Jun 08, 2018 16:10
--- NOTE | 2018-06-08 16:42 | Diagnostic Imaging Report ---
Indications: Deep venous thrombosis, contraindication to anticoagulation Technique: Case discussed by phone with Dr. Rios, who indicated preference for permanent IVC filter. Informed consent obtained prior to commencement of the procedure from the patient's daughter by phone, and recommendation for permanent IVC filter was discussed as well as alternatives, risks, benefits. Total sterile technique, including sterile probe cover and sterile gel, sterile gloves, hand hygiene, hat, mask,, sterile gown, large sterile drape, and preparation with 2% chlorhexidine utilized. Local anesthesia with 1% lidocaine. Ultrasound reveals patent compressible Right external jugular vein. An unusual appearing internal jugular vein was visualized, and attempts made at accessing it but without success in passing the guidewire. Under real-time ultrasound guidance, puncture right external jugular vein, passage of a guidewire, into the inferior vena cava , over which was passed a pigtail marker catheter. This was directed into the left common iliac vein, and a limited iliac venogram performed using hand injection of contrast and saved fluoroscopic image. Catheter was then withdrawn to the level of the iliac venous confluence.. An inferior venacavogram performed, using machine injection of contrast. The images were reviewed. The position of the renal veins was determined. The catheter was then exchanged for the introducer assembly of the [employer] inferior vena cava filter. The introducer assembly was advanced further into the inferior vena cava over a guidewire, and the guidewire and dilator were removed. The filter was passed into the into the sheath. It was then positioned into the appropriate position. The filter was then deployed by unsheathing it. The filter introducer was removed, and a followup inferior venacavogram was performed using hand injection of contrast through the sheath. The filter position was deemed acceptable. The sheath was removed. Pressure held on the right neck until hemostasis was achieved. The patient tolerated procedure well, without immediate complication. Total fluoroscopy time 2.8 minutes Total dose area product 978 [id number] Total number of acquired images 78 Comparison: none. Findings:Left iliac venogram demonstrates no evidence of caval anomaly. Inferior venacavogram demonstrates normal caliber inferior vena cava. Single renal veins. There is a small filling defect on the left side of the inferior vena cava just above the iliac venous confluence. It is unclear whether this is an extrinsic compression or mural thrombus, somewhat suspect the former. Completion inferior venacavogram demonstrates satisfactory filter position. There is a slight degree of rightward tilt. Uncertain as to whether this is due to slight curvature of the inferior vena cava, versus slight entanglement of one of the lateral struts with the main component. However, degree of tilt is only mild and should not affect filter function. Impression: Successful placement of right transjugular permanent infrarenal inferior vena cava filter, as above.
[2018-06-08] MEDS: Docusate 100mg/10ml Liq ORAL SCH (16:49)
[2018-06-08] MEDS ORDERED: Heparin 25,000u/D5W 500ml 500 ML IV SCH (17:15)
--- NOTE | 2018-06-08 22:23 | General Progress Note ---
Assessment/Plan Problem List: (1) Encephalopathy ICD Codes: G93.40 - Encephalopathy, unspecified SNOMED: 86436906 (2) UTI (urinary tract infection) ICD Codes: N39.0 - Urinary tract infection, site not specified SNOMED: 95201426 (3) Breast cancer in female ICD Codes: C50.919 - Malignant neoplasm of unspecified site of unspecified female breast SNOMED: 850557898 (4) Hypokalemia ICD Codes: E87.6 - Hypokalemia SNOMED: 79954004 (5) Dementia ICD Codes: F03.90 - Unspecified dementia without behavioral disturbance SNOMED: 25058645 Status: progressing Assessment/Plan dvt dc in am uti is improving low k blood clot.treatment per dr flores due to dementia and fall risk got vc filter Subjective ROS Limited/Unobtainable: Yes Allergies: Coded Allergies: PENICILLINS (Verified Allergy, Unknown, 06/02/18) Objective Last 24 Hour Vital Signs Date Time Temp Pulse Resp B/P (MAP) Pulse Ox O2 Delivery O2 Flow Rate FiO2 06/08/18 21:00 Room Air 06/08/18 20:00 97.9 85 18 108/53 (71) 97 97.9 06/08/18 15:15 89 16 111/73 (86) 97 06/08/18 15:10 88 16 103/58 (73) 97 06/08/18 15:05 86 18 97/56 (70) 99 06/08/18 15:00 94 20 121/94 (103) 98 06/08/18 14:55 92 18 115/59 (77) 95 06/08/18 14:50 83 18 105/49 (67) 96 06/08/18 14:45 86 22 107/49 (68) 95 06/08/18 13:57 77 18 06/08/18 12:00 97.4 76 20 98/54 (69) 95 97.4 06/08/18 09:09 Room Air 06/08/18 08:00 98.2 75 20 100/56 (71) 100 98.2 06/08/18 04:00 98.2 84 17 139/82 (101) 100 98.2 06/08/18 00:00 98.6 76 17 125/72 (89) 97 98.6 Intake and Output 06/07/18 06/08/18 19:00 07:00 Intake Total 144.784 ml 220.033 ml Output Total 1100 ml 300 ml Balance -955.216 ml -79.967 ml IV Total 144.784 ml 220.033 ml Output Urine Total 1100 ml 300 ml Laboratory Tests 06/08/18 06:40: Prothrombin Time 10.9, Prothromb Time International Ratio 1.0, Activated Partial Thromboplast Time 83H Height (Feet): 5 Height (Inches): 2.00 Weight (Pounds): 105 Neck: supple Cardiovascular: normal rate Respiratory/Chest: lungs clear Abdomen: soft Charles Irizarry MD Jun 08, 2018 22:23
[2018-06-09] VITALS: BP 124/59
[2018-06-09] MEDS ORDERED: Heparin 25,000u/D5W 500ml 500 ML IV SCH ×2 (01:15→08:30)
[2018-06-09] MEDS ORDERED: Heparin 1000 units/ml 1ml Vial IV SCH (01:30)
[2018-06-09 04:00] VITALS: BP 119/63
[2018-06-09] MEDS: Docusate 100mg/10ml Liq ORAL SCH (07:58)
[2018-06-09 08:00] VITALS: BP 123/57
[2018-06-09] MEDS ORDERED: Heparin 5000 units/ml inj IV SCH (08:30)
[2018-06-09 08:39] LABS: HEMATOCRIT 29.8 % (37.0-47.0); MEAN CORPUSCULAR VOLUME 91 FL (80-99); PLATELET COUNT 380 K/UL (150-450); RED BLOOD COUNT 3.29 M/UL (4.20-5.40); RED CELL DISTRIBUTION WIDTH 12.4 % (11.6-14.8); WHITE BLOOD COUNT 10.7 K/UL (4.8-10.8)
--- NOTE | 2018-06-09 09:32 | Pulmonology Progress Note ---
Assessment/Plan Assessment/Plan ASSESSMENT: Acute RLE non-occlusive DVT S/P IVC filter (06/08/18) H/O prior DVT not on A/C Fall risk Advanced alzheimer dementia AMS, likely toxic metabolic encephalopathy on top of underlying dementia UTI H/O Br CA S/P surgery/chemo/RT PLAN: D/C A/C S/P IVC filter Can F/U with Dr. Foley for continued management D/W daughter Indy, Dr. Mares and Dr. Nunez Subjective Allergies: Coded Allergies: PENICILLINS (Verified Allergy, Unknown, 06/02/18) Subjective ANA, AFVSS, stable on RA S/P IVC filter No complaints, no SOB, no CP, no F/C Objective Last 24 Hour Vital Signs Date Time Temp Pulse Resp B/P (MAP) Pulse Ox O2 Delivery O2 Flow Rate FiO2 06/09/18 04:00 97.5 71 18 119/63 (81) 95 97.5 06/09/18 00:00 97.5 78 18 124/59 (80) 95 97.5 06/08/18 21:00 Room Air 06/08/18 20:00 97.9 85 18 108/53 (71) 97 97.9 06/08/18 15:15 89 16 111/73 (86) 97 06/08/18 15:10 88 16 103/58 (73) 97 06/08/18 15:05 86 18 97/56 (70) 99 06/08/18 15:00 94 20 121/94 (103) 98 06/08/18 14:55 92 18 115/59 (77) 95 06/08/18 14:50 83 18 105/49 (67) 96 06/08/18 14:45 86 22 107/49 (68) 95 06/08/18 13:57 77 18 06/08/18 12:00 97.4 76 20 98/54 (69) 95 97.4 Intake and Output 06/08/18 06/09/18 19:00 07:00 Intake Total 87.632 ml Balance 87.632 ml IV Total 87.632 ml General Appearance: cachetic HEENT: normocephalic, atraumatic, anicteric, mucous membranes moist Respiratory/Chest: chest wall non-tender, lungs clear, normal breath sounds, no respiratory distress, no accessory muscle use Cardiovascular: normal peripheral pulses, normal rate, regular rhythm Abdomen: normal bowel sounds, soft, non tender, no organomegaly, non distended , no mass Extremities: no cyanosis, no clubbing, no edema Laboratory Tests 06/09/18 00:20: Activated Partial Thromboplast Time 54H 06/09/18 07:35: Activated Partial Thromboplast Time 60H, White Blood Count 10.7, Red Blood Count 3.29L, Hemoglobin 10.0L, Hematocrit 29.8L, Mean Corpuscular Volume 91, Mean Corpuscular Hemoglobin 30.5, Mean Corpuscular Hemoglobin Concent 33.6, Red Cell Distribution Width 12.4, Platelet Count 380, Mean Platelet Volume 5.5L, Neutrophils (%) (Auto) , Lymphocytes (%) (Auto) , Monocytes (%) (Auto) , Eosinophils (%) (Auto) , Basophils (%) (Auto) , Differential Total Cells Counted 100, Neutrophils % (Manual) 86H, Lymphocytes % (Manual) 10L, Monocytes % (Manual) 3, Eosinophils % (Manual) 1, Basophils % (Manual) 0, Band Neutrophils 0, Platelet Estimate Adequate, Platelet Morphology Normal, Red Blood Cell Morphology Normal Current Medications Medications (Trade) Dose Ordered Sig/Oren Route PRN Reason Start Time Stop Time Status Last Admin Dose Admin Acetaminophen (Tylenol) 500 mg Q4H PRN ORAL Mild Pain/Temp > 100.5 06/04/18 19:00 07/02/18 18:59 Docusate Sodium (Colace) 100 mg TWICE A DAY ORAL 06/07/18 18:00 07/07/18 17:59 06/09/18 07:58 Heparin Sodium/ Dextrose 500 ml @ 23.814 mls/ hr ADJUST PER PROTOCOL IV 06/09/18 08:30 07/09/18 08:29 06/09/18 09:24 Hydralazine HCl (Apresoline) 25 mg Q6H PRN ORAL for bp over 160 syst 06/04/18 19:00 07/02/18 18:59 Lidocaine HCl (Xylocaine 1% 30ml) 30 ml NOW PRN INJ Radiology Procedure 06/07/18 19:00 06/09/18 18:59 Magnesium Hydroxide (Mom) 30 ml DAILYPRN PRN ORAL Constipation 06/07/18 15:45 07/07/18 15:44 Mirtazapine (Remeron) 15 mg BEDTIME PRN ORAL insomnia 06/06/18 19:45 07/06/18 19:44 Pantoprazole (Protonix) 40 mg DAILY ORAL 06/06/18 09:00 07/06/18 08:59 06/09/18 07:58 Quetiapine Fumarate (SEROquel) 25 mg EVERY 6 HOURS PRN ORAL For Anxiety 06/05/18 14:15 07/05/18 14:14 Sennosides (Senokot) 1 tab DAILYPRN PRN ORAL Constipation 06/07/18 15:45 07/07/18 15:44 Lior Rios MD Jun 09, 2018 09:32
--- NOTE | 2018-06-09 11:54 | Nephrology Progress Note ---
Assessment/Plan Problem List: (1) Encephalopathy (2) UTI (urinary tract infection) (3) Hypokalemia (4) Breast cancer in female Assessment: remote history (5) Dementia (6) Malnutrition Assessment UTI- HypoKalemia Dementia Remote h/o Breast Ca- Right Mastectomy- s/p chemo and radiation Acute RLE non-occlusive DVT H/O prior DVT not on A/C Fall risk Plan Had IVC filter? Cipro for uti DC IV fluids B12 and Iron one dose per orders ? Dc ?? Subjective ROS Limited/Unobtainable: No Objective Objective Last 24 Hour Vital Signs Date Time Temp Pulse Resp B/P (MAP) Pulse Ox O2 Delivery O2 Flow Rate FiO2 06/09/18 09:30 Room Air 06/09/18 08:00 97.4 83 18 123/57 (79) 94 97.4 06/09/18 04:00 97.5 71 18 119/63 (81) 95 97.5 06/09/18 00:00 97.5 78 18 124/59 (80) 95 97.5 06/08/18 21:00 Room Air 06/08/18 20:00 97.9 85 18 108/53 (71) 97 97.9 06/08/18 15:15 89 16 111/73 (86) 97 06/08/18 15:10 88 16 103/58 (73) 97 06/08/18 15:05 86 18 97/56 (70) 99 06/08/18 15:00 94 20 121/94 (103) 98 06/08/18 14:55 92 18 115/59 (77) 95 06/08/18 14:50 83 18 105/49 (67) 96 06/08/18 14:45 86 22 107/49 (68) 95 06/08/18 13:57 77 18 06/08/18 12:00 97.4 76 20 98/54 (69) 95 97.4 Intake and Output 06/08/18 06/09/18 19:00 07:00 Intake Total 87.632 ml Balance 87.632 ml IV Total 87.632 ml Laboratory Tests 06/09/18 00:20: Activated Partial Thromboplast Time 54H 06/09/18 07:35: Activated Partial Thromboplast Time 60H, White Blood Count 10.7, Red Blood Count 3.29L, Hemoglobin 10.0L, Hematocrit 29.8L, Mean Corpuscular Volume 91, Mean Corpuscular Hemoglobin 30.5, Mean Corpuscular Hemoglobin Concent 33.6, Red Cell Distribution Width 12.4, Platelet Count 380, Mean Platelet Volume 5.5L, Neutrophils (%) (Auto) , Lymphocytes (%) (Auto) , Monocytes (%) (Auto) , Eosinophils (%) (Auto) , Basophils (%) (Auto) , Differential Total Cells Counted 100, Neutrophils % (Manual) 86H, Lymphocytes % (Manual) 10L, Monocytes % (Manual) 3, Eosinophils % (Manual) 1, Basophils % (Manual) 0, Band Neutrophils 0, Platelet Estimate Adequate, Platelet Morphology Normal, Red Blood Cell Morphology Normal Height (Feet): 5 Height (Inches): 2.00 Weight (Pounds): 105 General Appearance: no apparent distress Cardiovascular: normal rate Respiratory/Chest: lungs clear Objective no change Ortega Virgen MD Jun 09, 2018 11:54
--- NOTE | 2018-06-09 14:21 | Infectious Diseases Prog Note ---
Assessment/Plan Assessment/Plan A: UTI with E. coli treated AMS Dementia, Alzheimer DVT of R leg P: Observe off antibiotic s/p IVC filter placement Subjective ROS Limited/Unobtainable: Yes Cardiovascular: Reports: other - had IVC filter placement Allergies: Coded Allergies: PENICILLINS (Verified Allergy, Unknown, 06/02/18) Objective Vital Signs Last 24 Hour Vital Signs Date Time Temp Pulse Resp B/P (MAP) Pulse Ox O2 Delivery O2 Flow Rate FiO2 06/09/18 09:30 Room Air 06/09/18 08:00 97.4 83 18 123/57 (79) 94 97.4 06/09/18 04:00 97.5 71 18 119/63 (81) 95 97.5 06/09/18 00:00 97.5 78 18 124/59 (80) 95 97.5 06/08/18 21:00 Room Air 06/08/18 20:00 97.9 85 18 108/53 (71) 97 97.9 06/08/18 15:15 89 16 111/73 (86) 97 06/08/18 15:10 88 16 103/58 (73) 97 06/08/18 15:05 86 18 97/56 (70) 99 06/08/18 15:00 94 20 121/94 (103) 98 06/08/18 14:55 92 18 115/59 (77) 95 06/08/18 14:50 83 18 105/49 (67) 96 06/08/18 14:45 86 22 107/49 (68) 95 Height (Feet): 5 Height (Inches): 2.00 Weight (Pounds): 105 General Appearance: no acute distress HEENT: mucous membranes moist Respiratory/Chest: lungs clear Cardiovascular: normal rate Abdomen: soft, non tender Extremities: no edema Neurologic/Psychiatric: other - sleeping Laboratory Tests Test 06/09/18 00:20 06/09/18 07:35 Activated Partial Thromboplast Time 54 SEC (23-33) H 60 SEC (23-33) H White Blood Count 10.7 K/UL (4.8-10.8) Red Blood Count 3.29 M/UL (4.20-5.40) L Hemoglobin 10.0 G/DL (12.0-16.0) L Hematocrit 29.8 % (37.0-47.0) L Mean Corpuscular Volume 91 FL (80-99) Mean Corpuscular Hemoglobin 30.5 PG (27.0-31.0) Mean Corpuscular Hemoglobin Concent 33.6 G/DL (32.0-36.0) Red Cell Distribution Width 12.4 % (11.6-14.8) Platelet Count 380 K/UL (150-450) Mean Platelet Volume 5.5 FL (6.5-10.1) L Neutrophils (%) (Auto) % (45.0-75.0) Lymphocytes (%) (Auto) % (20.0-45.0) Monocytes (%) (Auto) % (1.0-10.0) Eosinophils (%) (Auto) % (0.0-3.0) Basophils (%) (Auto) % (0.0-2.0) Differential Total Cells Counted 100 Neutrophils % (Manual) 86 % (45-75) H Lymphocytes % (Manual) 10 % (20-45) L Monocytes % (Manual) 3 % (1-10) Eosinophils % (Manual) 1 % (0-3) Basophils % (Manual) 0 % (0-2) Band Neutrophils 0 % (0-8) Platelet Estimate Adequate Platelet Morphology Normal Red Blood Cell Morphology Normal Current Medications Medications (Trade) Dose Ordered Sig/Oren Route PRN Reason Start Time Stop Time Status Last Admin Dose Admin Acetaminophen (Tylenol) 500 mg Q4H PRN ORAL Mild Pain/Temp > 100.5 06/04/18 19:00 07/02/18 18:59 Docusate Sodium (Colace) 100 mg TWICE A DAY ORAL 06/07/18 18:00 07/07/18 17:59 06/09/18 07:58 Heparin Sodium (Porcine) (Heparin 5000 units/ml) 5,000 units EVERY 12 HOURS SUBQ 06/09/18 21:00 07/09/18 20:59 Hydralazine HCl (Apresoline) 25 mg Q6H PRN ORAL for bp over 160 syst 06/04/18 19:00 07/02/18 18:59 Lidocaine HCl (Xylocaine 1% 30ml) 30 ml NOW PRN INJ Radiology Procedure 06/07/18 19:00 06/09/18 18:59 Magnesium Hydroxide (Mom) 30 ml DAILYPRN PRN ORAL Constipation 06/07/18 15:45 07/07/18 15:44 Mirtazapine (Remeron) 15 mg BEDTIME PRN ORAL insomnia 06/06/18 19:45 07/06/18 19:44 Pantoprazole (Protonix) 40 mg DAILY ORAL 06/06/18 09:00 07/06/18 08:59 06/09/18 07:58 Quetiapine Fumarate (SEROquel) 25 mg EVERY 6 HOURS PRN ORAL For Anxiety 06/05/18 14:15 07/05/18 14:14 Sennosides (Senokot) 1 tab DAILYPRN PRN ORAL Constipation 06/07/18 15:45 07/07/18 15:44 Jeronimo Berry MD Jun 09, 2018 14:21
--- NOTE | 2018-06-09 15:25 | General Progress Note ---
Assessment/Plan Assessment/Plan 1. Left leg femoral to proximal deep venous thrombosis. IVC filter has been placed, at this time monitor to make sure no bleed, on eliquis --> Currently, hemoglobin improved. Hemoglobin currently at 11.2. --> No significant evidence of bleed, however, may consider to place the patient on low dose apixaban and potentially withhold IVC filter though that is an option. ==> Agree with PCP and pulm, IVCF placement given high fall risk --> eliquis 5mg po bid 2. History of breast cancer, status post chemotherapy and radiation and surgery. --> at this time, no evidence for recurrence based on inpatient imaging completed 3. Altered mental status, likely encephalopathy. 4. Dementia. 5. Uti, status post antibiotics. 6. Dementia. Seen by Neurology. 7. Fall risk. Further evaluation as needed with Neurological Service 8. Depression. Seen by Psychiatry. Subjective Constitutional: Denies: no symptoms, chills, diaphoresis, fever, malaise, weakness, other HEENT: Denies: no symptoms, eye pain, blurred vision, tearing, double vision, ear pain, ear discharge, nose pain, nose congestion, throat pain, throat swelling, mouth pain, mouth swelling, other Cardiovascular: Denies: no symptoms, chest pain, edema, irregular heart rate, lightheadedness, palpitations, syncope, other Respiratory: Denies: no symptoms, cough, orthopnea, shortness of breath, SOB with excertion, SOB at rest, sputum, stridor, wheezing, other Gastrointestinal/Abdominal: Denies: no symptoms, abdomen distended, abdominal pain, black stools, tarry stools, blood in stool, constipated, diarrhea, difficulty swallowing, nausea, poor appetite, poor fluid intake, rectal bleeding , vomiting, other Genitourinary: Denies: no symptoms, burning, discharge, frequency, flank pain, hematuria, incontinence, pain, urgency, other Neurologic/Psychiatric: Denies: no symptoms, anxiety, depressed, emotional problems, headache, numbness, paresthesia, pre-existing deficit, seizure, tingling, tremors, weakness, other Endocrine: Denies: no symptoms, excessive sweating, flushing, intolerance to cold, intolerance to heat, increased hunger, increased thirst, increased urine, unexplained weight gain, unexplained weight loss, other Hematologic/Lymphatic: Denies: no symptoms, anemia, easy bleeding, easy bruising, other Allergies: Coded Allergies: PENICILLINS (Verified Allergy, Unknown, 06/02/18) Subjective Pt awake and alert. No acute events. ivcf has been placed Objective Last 24 Hour Vital Signs Date Time Temp Pulse Resp B/P (MAP) Pulse Ox O2 Delivery O2 Flow Rate FiO2 06/09/18 09:30 Room Air 06/09/18 08:00 97.4 83 18 123/57 (79) 94 97.4 06/09/18 04:00 97.5 71 18 119/63 (81) 95 97.5 06/09/18 00:00 97.5 78 18 124/59 (80) 95 97.5 06/08/18 21:00 Room Air 06/08/18 20:00 97.9 85 18 108/53 (71) 97 97.9 Intake and Output 06/08/18 06/09/18 19:00 07:00 Intake Total 87.632 ml Balance 87.632 ml IV Total 87.632 ml Laboratory Tests 06/09/18 00:20: Activated Partial Thromboplast Time 54H 06/09/18 07:35: Activated Partial Thromboplast Time 60H, White Blood Count 10.7, Red Blood Count 3.29L, Hemoglobin 10.0L, Hematocrit 29.8L, Mean Corpuscular Volume 91, Mean Corpuscular Hemoglobin 30.5, Mean Corpuscular Hemoglobin Concent 33.6, Red Cell Distribution Width 12.4, Platelet Count 380, Mean Platelet Volume 5.5L, Neutrophils (%) (Auto) , Lymphocytes (%) (Auto) , Monocytes (%) (Auto) , Eosinophils (%) (Auto) , Basophils (%) (Auto) , Differential Total Cells Counted 100, Neutrophils % (Manual) 86H, Lymphocytes % (Manual) 10L, Monocytes % (Manual) 3, Eosinophils % (Manual) 1, Basophils % (Manual) 0, Band Neutrophils 0, Platelet Estimate Adequate, Platelet Morphology Normal, Red Blood Cell Morphology Normal Height (Feet): 5 Height (Inches): 2.00 Weight (Pounds): 105 General Appearance: no apparent distress EENT: pharynx normal Neck: supple Cardiovascular: normal rate Respiratory/Chest: lungs clear Abdomen: no organomegaly Extremities: non-tender Edema: 1+ Leg (L), 1+ Leg (R) Edema: trace edema Neurologic: oriented x 3 Skin: warm/dry Wang Mares MD Jun 09, 2018 15:25
[2018-06-09] MEDS ORDERED: Eliquis 2.5mg tablet ORAL SCH (18:00)
--- NOTE | 2018-06-09 19:31 | General Progress Note ---
Assessment/Plan Status: stable, progressing Assessment/Plan encephalopathy due to [facility] -remeron prn -provided ro/st seroquel prn Subjective Date patient seen: Jun 09, 2018 Neurologic/Psychiatric: Reports: anxiety, depressed, emotional problems Allergies: Coded Allergies: PENICILLINS (Verified Allergy, Unknown, 06/02/18) Subjective confused. more alert Objective Last 24 Hour Vital Signs Date Time Temp Pulse Resp B/P (MAP) Pulse Ox O2 Delivery O2 Flow Rate FiO2 06/09/18 09:30 Room Air 06/09/18 08:00 97.4 83 18 123/57 (79) 94 97.4 06/09/18 04:00 97.5 71 18 119/63 (81) 95 97.5 06/09/18 00:00 97.5 78 18 124/59 (80) 95 97.5 06/08/18 21:00 Room Air 06/08/18 20:00 97.9 85 18 108/53 (71) 97 97.9 Intake and Output 06/08/18 06/09/18 19:00 07:00 Intake Total 87.632 ml Balance 87.632 ml IV Total 87.632 ml Laboratory Tests 06/09/18 00:20: Activated Partial Thromboplast Time 54H 06/09/18 07:35: Activated Partial Thromboplast Time 60H, White Blood Count 10.7, Red Blood Count 3.29L, Hemoglobin 10.0L, Hematocrit 29.8L, Mean Corpuscular Volume 91, Mean Corpuscular Hemoglobin 30.5, Mean Corpuscular Hemoglobin Concent 33.6, Red Cell Distribution Width 12.4, Platelet Count 380, Mean Platelet Volume 5.5L, Neutrophils (%) (Auto) , Lymphocytes (%) (Auto) , Monocytes (%) (Auto) , Eosinophils (%) (Auto) , Basophils (%) (Auto) , Differential Total Cells Counted 100, Neutrophils % (Manual) 86H, Lymphocytes % (Manual) 10L, Monocytes % (Manual) 3, Eosinophils % (Manual) 1, Basophils % (Manual) 0, Band Neutrophils 0, Platelet Estimate Adequate, Platelet Morphology Normal, Red Blood Cell Morphology Normal Height (Feet): 5 Height (Inches): 2.00 Weight (Pounds): 105 General Appearance: no apparent distress, alert, confused Wolfgang Rodrigez MD Jun 09, 2018 19:31
[2018-06-09] MEDS ORDERED: Heparin 5000 units/ml inj SUBQ SCH (21:00)
--- NOTE | 2018-06-11 09:44 | Discharge Summary ---
Discharge Summary Discharge Summary _ DATE OF ADMISSION: 06/02/2018 DATE OF DISCHARGE: 06/09/2018 REASON FOR ADMISSION: 88 years old female with history of advanced Alzheimer dementia, left breast cancer ,status post mastectomy, radiation and chemotherapy, presented for continued weakness and altered mental status for the last 2 days. Patient was not behaving as usual as per family. Family was unable to stand her up to go to the restroom. Family reported that the patient was not eating well. No evidence of fever. No history of falls. No specific focal weakness. Upon evaluation vital signs revealed temperature of 99.2. Laboratory workup revealed no leukocytosis , stable hemoglobin and hematocrit. Lactic acid 1.2. Urinalysis with evidence of UTI. Potassium 3.1. Troponin negative. Albumin 3.1 CT of the head revealed chronic age-related changes, but no acute intracranial pathology. Chest x-ray revealed no acute cardiopulmonary pathology. Patient admitted with diagnosis . Patient admitted with diagnoses of possible sepsis, urinary tract infection, hypertension, hypokalemia, encephalopathy. CONSULTANTS: pulmonary Dr. Rios ID specialist Dr. Reynolds vulcanizer rubber plate Dr. Virgen brim shaper/oncologist Dr. Mares psychiatrist [facility]: [Patient admitted. Patient started on empiric antibiotic. Infectious disease specialist closely followed. Blood culture were negative. Urine culture revealed Escherichia coli. Patient status post antibiotic treatment for UTI. No fever no leukocytosis. Infectious disease doctor recommended to observe patient off antibiotics. Acute encephalopathy was likely secondary to acute infection. Mental status back to baseline, as infection cleared. Venous duplex bilateral lower extremity revealed acute nonocclusive thrombus in femoral to proximal superficial femoral vein right lower extremity. Patient s was not a good candidate for anticoagulant therapy due to fall risk. Patient subsequently undergone IVC filter by interventional radiology on June 08. Roofer closely followed. Supplemental oxygen provided as needed to keep pulse oximetry above 92%. Pulmonary toilet provided as needed. Chest x-ray revealed revealed no acute cardio pulmonary pathology. No signs of respiratory distress. Production Support Developer/oncologist closely followed. Patient status with history of right breast cancer, status post mastectomy, chemotherapy and radiation. According to oncologist, no evidence of recurrence based on inpatient current imaging. Fire Sprinkler Apparatus Inspector closely followed. Renal parameters and electrolytes were closely monitored. Patient was on gentle IV hydration. Electrolytes corrected as needed. Nephrotoxins were avoided. Prior to discharge, stable electrolytes and renal parameters. Psychiatrist diagnosed patient with encephalopathy , secondary to general medical condition. Reality orientation and supportive therapy provided. Remeron and Seroquel were on board as needed. Fall precautions maintained. Patient was working with physical and occupational therapist Swallow evaluation revealed high risk for silent aspiration. Diet provided as per [id number] with strict aspiration /reflux precautions and one-to-one feeding. Dietary supplements provided to optimize nutritional status. Placement was found at the [facility]. Patient was stable for transfer to [facility] for continuation of care FINAL DIAGNOSES: Urinary tract infection with Escherichia coli Altered mental status, likely toxic metabolic encephalopathy on underlying dementia Advanced Alzheimer dementia Acute right lower extremity nonocclusive DVT Status post IVC filter placement Hypokalemia Malnutrition History of breast cancer status post chemotherapy radiation and surgery Fall risk DISCHARGE MEDICATIONS: See Medication Reconciliation list. DISCHARGE INSTRUCTIONS: Patient was discharged to the [facility] facility. Follow up with medical doctor at the facility. I have been assigned to dictate discharge summary for this account. I was not involved in the patient's management. Jaz Pang NP Jun 11, 2018 09:44
== END 2018-06-09 15:15 | DRG 673 ==
LOC: EDBD 10:12 → EMR 10:45 → 2E 12:30 → EDBEDREQ 13:28 → 4E 06-04 18:31
PROC: 06H03DZ Insertion of Intraluminal Device into Inferior Vena Cava, Percutaneous Approach (ICD-10-PCS; principal; 2018-06-02)
DX: N39.0 Urinary tract infection, site not specified (principal); G92 Toxic encephalopathy; E46 Unspecified protein-calorie malnutrition; Z68.1 Body mass index [BMI] 19.9 or less, adult; I82.401 Acute embolism and thrombosis of unspecified deep veins of right lower extremity; B96.20 Unspecified Escherichia coli [E. coli] as the cause of diseases classified elsewhere; G30.9 Alzheimer's disease, unspecified; F02.80 Dementia in other diseases classified elsewhere, unspecified severity, without behavioral disturbance, psychotic disturbance, mood disturbance, and anxiety; Z86.718 Personal history of other venous thrombosis and embolism; Z88.0 Allergy status to penicillin; I10 Essential (primary) hypertension; Z85.3 Personal history of malignant neoplasm of breast; Z90.12 Acquired absence of left breast and nipple; Z92.3 Personal history of irradiation; E87.6 Hypokalemia; F32.9 Major depressive disorder, single episode, unspecified; Z91.81 History of falling
CPT/HCPCS: 36415; 70450; 71045; 74018; 76937; 80053; 80061; 81003; 82550; 82553; 82607; 82728; 82746; 82977; 83036; 83540; 83550; 83605; 83690; 83735; 83880; 84100; 84443; 84484; 84550; 85007; 85025; 85610; 85730; 86140; 87040; 87086; 87181; 93005; 93970; 96365; 99285